=== PATIENT | female | born 1995 | race Caucasian/White ===

== ENCOUNTER 2019-01-18 19:56 | Emergency (ER) | payer SELFPAY ==
[2019-01-18] MEDS ORDERED: Bicillin LA 1.2 MILLION UNITS/2 ML SYRINGE ONE (20:51)
[2019-01-18] MEDS ORDERED: Dexamethasone 10 MG/ML VIAL ONE (20:52)
== END 2019-01-18 21:19 | disposition home or self-care (01) ==
LOC: ERS 19:56
DX: J02.0 Streptococcal pharyngitis (principal); J45.909 Unspecified asthma, uncomplicated; F41.9 Anxiety disorder, unspecified; F32.9 Major depressive disorder, single episode, unspecified; F43.10 Post-traumatic stress disorder, unspecified; Z79.899 Other long term (current) drug therapy
CPT/HCPCS: 87430; 96372; 99283; J0561; J1100

== ENCOUNTER 2019-02-21 16:49 | Emergency (ER) | payer SELFPAY ==
[2019-02-21 17:30] LABS: Bacteria/HPF None Seen HPF (None Seen); Bilirubin Negative (Negative); Blood, Urine Trace (Negative); Clarity Clear (Clear); Glucose, Urine (Dipstick) Normal (Negative); Leukocyte Negative Leu/uL (Negative); Nitrite Negative (Negative); Protein, Urine (Dipstick) Negative (Neg-Trace); RBC/HPF 0-3 HPF (0-3); Squamous Epithelial 0-3 HPF (0-3); Urobilinogen Normal mg/dL (Less than 2); WBC/HPF 0-3 HPF (0-3)
[2019-02-21 17:31] LABS: #Basophils 0.1 thou/uL (0.0-0.2); #Eosinphils 0.3 thou/uL (0.0-0.7); #Lymphocytes 3.5 thou/uL (1.20-3.40); #Monocytes 0.8 thou/uL (0.11-0.59); #Neutrophils 9.1 thou/uL (1.40-6.50); %Basophils 0.7 % (0.0-1.0); %Eosinophils 2.2 % (0.0-10.0); %Lymphocytes 25.2 % (21.0-51.0); %Monocytes 6.1 % (0.0-10.0); %Neutrophils 65.8 % (42.0-75.0); Hemoglobin 13.9 g/dL (12.0-16.0); Mean Corpuscular HGB CONC 34.5 g/dL (32.0-36.0); Mean Corpuscular Hemoglobin 30.4 pg (27.0-31.0); Mean Corpuscular Volume 88.1 fL (78.0-98.0); Mean Platelet Volume 7.5 fL (7.4-10.4); Platelet Count 363 thou/uL (130-400); RBC Distribution Width 12.9 % (11.5-14.5); Red Blood Cell (RBC) Count 4.57 mill/uL (4.20-5.40); White Blood Cell (WBC) Count 13.8 thou/uL (4.8-10.8)
[2019-02-21 17:40] LABS: BHCG - Serum POSITIVE (NEGATIVE); Pregs Control Background? CLEAR/WHITE (CLR/WHITE); Pregs Control Bar Appear? YES (CONTROL BAR)
[2019-02-21] MEDS ORDERED: Ondansetron ODT 4 MG TAB ONE (19:18)
--- NOTE | 2019-02-21 20:17 | ULT ---
Pelvic sonogram transabdominal and transvaginal imaging with duplex evaluation HISTORY: Pelvic pain and bleeding. Positive test. FINDINGS: Urinary bladder is incompletely distended. Uterus has a heterogeneous echotexture and measu res up to 8.5 cm. Within the fundal portion of the endometrial cavity, a lobular predominantly oval cyst correlates with 5 weeks 5 days gestational age. No pole or yolk sac visible. Small heterog eneous fluid collection immediately distal to it may represent an area of subchorionic hemorrhage. No free fluid within the pelvis. Right ovary has normal appearance with good color and spectral Doppl er flow. Left ovary not visualized. IMPRESSION: Small cystic structure, possibly gestational sac, within the fundal in endometrial cavity . Measurements correlate with 5 weeks 5 days gestational age. No yolk sac or pole are visible. Close continued clinical and sonographic follow-up recommended. Small adjacent subchorionic hemorrhage.
== END 2019-02-21 20:53 | disposition home or self-care (01) ==
LOC: ERS 16:49
DX: O20.0 Threatened abortion (principal); O20.8 Other hemorrhage in early pregnancy; Z79.899 Other long term (current) drug therapy; Z3A.01 Less than 8 weeks gestation of pregnancy
CPT/HCPCS: 36415; 76856; 81003; 81015; 84702; 84703; 85025; 86900; 86901; 90384; 96372; Q0162

== ENCOUNTER 2019-02-25 07:29 | Emergency (ER) | payer SELFPAY ==
[2019-02-25 08:00] LABS: #Basophils 0.1 thou/uL (0.0-0.2); #Eosinphils 0.2 thou/uL (0.0-0.7); #Lymphocytes 2.2 thou/uL (1.20-3.40); #Monocytes 0.6 thou/uL (0.11-0.59); #Neutrophils 6.4 thou/uL (1.40-6.50); %Basophils 1.1 % (0.0-1.0); %Eosinophils 1.7 % (0.0-10.0); %Lymphocytes 23.6 % (21.0-51.0); %Monocytes 6.3 % (0.0-10.0); %Neutrophils 67.4 % (42.0-75.0); Hemoglobin 13.4 g/dL (12.0-16.0); Mean Corpuscular HGB CONC 34.5 g/dL (32.0-36.0); Mean Corpuscular Hemoglobin 30.9 pg (27.0-31.0); Mean Corpuscular Volume 89.3 fL (78.0-98.0); Mean Platelet Volume 7.6 fL (7.4-10.4); Platelet Count 352 thou/uL (130-400); RBC Distribution Width 12.7 % (11.5-14.5); Red Blood Cell (RBC) Count 4.34 mill/uL (4.20-5.40); White Blood Cell (WBC) Count 9.5 thou/uL (4.8-10.8)
--- NOTE | 2019-02-25 09:54 | ULT ---
Pelvic ultrasound: 02/25/2019 COMPARISON: 02/21/2019 HISTORY: Pelvic pain, female TECHNIQUE: Multiplanar grayscale sonographic imaging of the pelvis obtained with transabdominal and e ndovaginal imaging The ovaries are assessed with color flow and spectral analysis FINDINGS: The left ovary could not be visualized on transabdominal or endovaginal imaging. There is an intrauterine gestational sac which contains a pole and yolk sac. heart rate i s 95-98 bpm, suggesting a mild degree of bradycardia. There is a tiny subchorionic hemorrhage measuring approximately 6-7 mm. No significant free fluid is seen in the pelvis. Right ovary demonstrates normal blood flow and measures approximately 2.1 x 2.0 x 1.3 cm and contains a subcentimeter cyst. biometry: [place]-rump length 0.4 cm 6 weeks 0 days Gestational sac diameter 1.3 cm 6 weeks 1 days Average age based on ultrasound is 6 week 1 day with estimated date of delivery on 10/20/2019. IMPRESSION: Intrauterine gestation as detailed above. Mild bradycardia. Small subchorionic hemo rrhage.
== END 2019-02-25 10:45 | disposition home or self-care (01) ==
LOC: ERS 07:29
DX: O99.89 Other specified diseases and conditions complicating pregnancy, childbirth and the puerperium (principal); R10.2 Pelvic and perineal pain; O99.511 Diseases of the respiratory system complicating pregnancy, first trimester; J45.909 Unspecified asthma, uncomplicated; O99.341 Other mental disorders complicating pregnancy, first trimester; F41.9 Anxiety disorder, unspecified; F32.9 Major depressive disorder, single episode, unspecified; F43.10 Post-traumatic stress disorder, unspecified; Z3A.01 Less than 8 weeks gestation of pregnancy
CPT/HCPCS: 36415; 76856; 84702; 85025

== ENCOUNTER 2019-04-11 16:51 | Inpatient (IN) | payer OTHER ==
[2019-04-11] MEDS ORDERED: Promethazine HCl 25 MG/ML VIAL IM PRN (17:22)
[2019-04-11 17:38] VITALS: BMI 34.5
[2019-04-11] MEDS: Lactated Ringer's 1,000 ML IV SCH (18:32)
[2019-04-11 18:39] LABS: Bilirubin Negative (Negative); Blood, Urine Negative (Negative); Clarity Clear (Clear); Glucose, Urine (Dipstick) Normal (Negative); Leukocyte 25 Leu/uL (Negative); Nitrite Negative (Negative); Protein, Urine (Dipstick) 20 mg/dL (Neg-Trace); RBC/HPF 0-3 HPF (0-3); Urobilinogen Normal mg/dL (Less than 2); WBC/HPF 0-3 HPF (0-3)
[2019-04-11 18:40] LABS: Bacteria/HPF 1+ HPF (None Seen)
[2019-04-11 19:12] LABS: Anion Gap 15 mmol/L (10-20); BUN (Urea Nitrogen) 5 mg/dL (7.0-18.7); Calc. Creatinine Clearance 182 mL/min (70-130); Calcium 9.5 mg/dL (7.8-10.44); Carbon Dioxide 20 mmol/L (22-29); Chloride 105 mmol/L (98-107); Estimated GFR-MDRD Greater than 90; Glucose 67 mg/dL (70-105); Sodium 136 mmol/L (136-145)
[2019-04-11] MEDS ORDERED: Albuterol Sulfate 1.25 MG/3 ML NEB NEB PRN (20:01)
--- NOTE | 2019-04-11 20:02 | PDOC.FPRHP ---
- History of Present Illness Chief Complaint: N/V, Weight Loss History of Present Illness: Pt is a 24 yo female at 12.3 wks dated by LMP, c/w 1T sono with PMH of asthma, hx of SAB x 4 who presents who for constant nausea, emesis and 10# weight during her . She has had symptoms for the last 2-3 weeks which progressively have gotten worse. She is unable to tolerate an PO intake without episodes of emesis. Unable to tolerate her PNV. She was given zofran for nausea which has not alleviated her symptoms. She had a BM yesterday. She did endorse KIM but has hx of migraines. Denies abdominal tenderness. Denies vaginal bleeding, discharge. Regarding her SAB x 4 she has had work up in the outpt setting has been unremarkable to this point. She did not progress past 9 weeks in the previous pregnancies. She will see M in the following month. ED Course: Direct admission from [facility] - Allergies/Adverse Reactions Allergies Allergy/AdvReac Type Severity Reaction Status Date / Time artificial sweeteners Allergy Headache Uncoded 04/11/19 17:23 - Home Medications Medication Instructions Recorded Confirmed Type Albuterol Sulfate [Albuterol 1.25 mg NEB Q6HR PRN 04/11/19 04/11/19 History Sulfate Neb] Ondansetron [Zofran ODT] 4 mg PO Q4HR PRN 04/11/19 04/11/19 History Pnv No.95/Ferrous Fum/Folic AC 1 tablet PO DAILY 04/11/19 04/11/19 History [Prenavite Tablet] - History PMHx: SAB x 4, Migraines, Asthma PSHx: appendectomy, D&C x 4 FHx: Mother - Pre-E, SAB; Aunts - labor Social: Denies drug use, alcohol use, tobacco use, currently not working - Review of Systems General: reports: weight/appetite/sleep changes. denies: fever/chills ENT: denies: nasal congestion Respiratory: denies: cough, congestion, shortness of breath Cardiovascular: denies: chest pain, palpitation, edema Gastrointestinal: reports: nausea, vomiting. denies: diarrhea, constipation Genitourinary: denies: dysuria, polyuria, discharge - Vital signs BP: 116/71 HR: 86 RR: 16 Tmax: 97.7 Pox: 99% on RA Wt: 80.3 kg - Physical Exam Constitutional: NAD, awake, alert and oriented HEENT: PERRLA, EOMI Neck: FROM, trachea midline Heart: RRR, normal S1/S2, no edema Lungs: CTAB, no respiratory distress, no wheezing Abdomen: soft, non-tender, bowel sounds present Musculoskeletal: normal tone, ROM grossly normal Neurological: CN II-XII intact Skin: no rash/lesions Heme/Lymphatic: no purpura, no petechia FMR H&P: Results - Labs Result Diagrams: 04/11/19 18:25 Lab results: Sodium 136 mmol/L (136-145) 04/11/19 18:25 Potassium 4.0 mmol/L (3.5-5.1) 04/11/19 18:25 Chloride 105 mmol/L (98-107) 04/11/19 18:25 Carbon Dioxide 20 mmol/L (22-29) L 04/11/19 18:25 BUN 5 mg/dL (7.0-18.7) L 04/11/19 18:25 Creatinine 0.61 mg/dL (0.6-1.1) 04/11/19 18:25 Glucose 67 mg/dL (70-105) L 04/11/19 18:25 Calcium 9.5 mg/dL (7.8-10.44) 04/11/19 18:25 Urine Ketones 80 mg/dL (Negative) A 04/11/19 18:30 Urine Blood Negative (Negative) 04/11/19 18:30 Urine Nitrite Negative (Negative) 04/11/19 18:30 Ur Leukocyte Esterase 25 Jennifer/uL (Negative) 04/11/19 18:30 Urine RBC 0-3 HPF (0-3) 04/11/19 18:30 Urine WBC 0-3 HPF (0-3) 04/11/19 18:30 Ur Squamous Epith Cells 4-6 HPF (0-3) A 04/11/19 18:30 Urine Bacteria 1+ HPF (None Seen) A 04/11/19 18:30 FMR H&P: A/P - Problem List (1) Hyperemesis gravidarum Current Visit: Yes Status: Acute Code(s): O21.0 - MILD HYPEREMESIS GRAVIDARUM (2) Hx of spontaneous , currently Current Visit: Yes Status: Acute Code(s): O09.299 - SUPRVSN OF PREG W POOR REPRODCTV OR OBSTET HISTORY, UNSP TRI (3) Weight loss Current Visit: Yes Status: Acute - Plan Pt is a 24 yo female at 12.3 wks dated by LMP, c/w 1T sono with PMH of asthma, hx of SAB x 4 who presents who for constant nausea, emesis and 10# weight during her : # Hyperemesis Gravidarum # Weight Loss - anti-emetics for nausea control - advance diet as tolerated; currently clear liquids - prior u/s revealed pole - TSH pending, CBC pending - monitor electrolytes # SAB - worked up in the outpt setting - pt denies vaginal bleeding - sees MFM in a month Fluids: LR 120 Diet: Clears VTE: scd's Code: Full Dispo: < 2 midnight stay FMR H&P: Upper Level - Plan Date/Time: 04/11/191999 I, [], have evaluated this patient and agree with findings/plan as outlined by technical internship resident. Pertinent changes/additions are listed here.
[2019-04-11 20:32] LABS: #Basophils 0.1 thou/uL (0.0-0.2); #Eosinphils 0.1 thou/uL (0.0-0.7); #Lymphocytes 2.9 thou/uL (1.20-3.40); #Monocytes 0.6 thou/uL (0.11-0.59); #Neutrophils 7.7 thou/uL (1.40-6.50); %Basophils 0.6 % (0.0-1.0); %Eosinophils 1.2 % (0.0-10.0); %Lymphocytes 25.2 % (21.0-51.0); %Monocytes 5.1 % (0.0-10.0); %Neutrophils 67.9 % (42.0-75.0); Mean Corpuscular HGB CONC 33.8 g/dL (32.0-36.0); Mean Corpuscular Volume 91.9 fL (78.0-98.0); Mean Platelet Volume 9.6 fL (7.4-10.4); Platelet Count 306 thou/uL (130-400); RBC Distribution Width 12.9 % (11.5-14.5); Red Blood Cell (RBC) Count 4.53 mill/uL (4.20-5.40); White Blood Cell (WBC) Count 11.4 thou/uL (4.8-10.8)
[2019-04-11] MEDS ORDERED: diphenhydrAMINE 12.5 MG in Sodium Chloride 0.9% 50 ML IVPB SCH (21:00)
--- NOTE | 2019-04-11 21:18 | PDOC.BPN ---
- Brief Progress Note Date/Time: 04/11/191999 I, Murphy Rivas MD, have evaluated this patient and agree with findings/plan as outlined by credit intern resident in the History and Physical note. Pertinent changes/additions are listed here. Crystal Monday is a 24 year old F at 12.4 wks by LMP c/w 6.1 wk sono with a PMH of asthma and recurrent miscarriages. She was sent to [facility] as direct admit from Clinic for hyperemesis gravidarum. Patient has had progressively worsening nausea and vomiting since 6th week of . Over the last 1-2 weeks, she has not been able to keep done much PO intake and also notes a 10 lb weight loss since becoming . She was given zofran but it has not significantly improved her n/v. She denies significant abdominal pain aside from crampy sensation prior to vomiting. Denies fever. Has hx of appendectomy. Denies RUQ pain. She had a 6.1 US showing normal IUP. Also endorses HAs, has hx of migraines. Denies vaginal bleeding, LOF, contractions, dysuria. Pt has had work up of recurrent miscarriages at [facility]. Unable to view records at this time, but was informed by PCP that she was negative for antiphospholipid syndrome. Plan is for pt to follow up with MFM during this . Upon arrival, VSS and wnl, afebrile. Normal BMP. Exam was benign, no RUQ TTP, mild epigastric TTP, no rebound, guarding or rigidity. MMM, lungs CTAB, heart RRR no murmurs. 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 Starting antiemetic regimen and will start mIVFs. Will advance diet as tolerated, starting with clear liquids. Monitor I/Os and daily weights. Anticipate hospital stay >48 hours. Please see credit intern note for full H& P, which I have reviewed and agree with.
[2019-04-12] MEDS: Lactated Ringer's 1,000 ML IV SCH ×4 (02:40→19:10)
[2019-04-12] MEDS: Ondansetron ODT 4 MG TAB PO PRN (05:48)
[2019-04-12] MEDS: Prenatal Vitamin 1 TAB PO SCH (08:28)
[2019-04-12] MEDS: Doxylamine 25 MG TAB PO SCH ×2 (08:28→22:13)
[2019-04-12] MEDS ORDERED: Promethazine HCl 12.5 MG SUPP PR PRN (09:14)
--- NOTE | 2019-04-12 09:15 | PDOC.FM ---
- Subjective Subjective: No vomiting overnight however she did not try anything PO except water. She felt nauseous each time she drank water. Denies abdominal pain. Would like Phenergan PO rather than IM. Otherwise no complaints. - Objective MAR Reviewed: Yes Vital Signs & Weight: Vital Signs (12 hours) Temp Pulse Resp BP Pulse Ox 04/12/19 07:50 98.7 F 83 20 85/49 L 97 04/12/19 05:42 98.8 F 88 16 94/51 L 04/12/19 00:30 98.3 F 82 16 98/53 L Weight Weight 80.286 kg I&O: 04/11/19 04/12/19 04/13/19 06:59 06:59 06:59 Intake Total 1846 Output Total 1450 Balance 396 Result Diagrams: 04/11/19 18:28 04/11/19 18:25 Phys Exam - Physical Examination Constitutional: NAD HEENT: moist MMs Neck: supple Respiratory: no wheezing, clear to auscultation bilateral Cardiovascular: RRR, no significant murmur Gastrointestinal: soft, non-tender, positive bowel sounds Musculoskeletal: no edema, pulses present Neurological: moves all 4 limbs Psychiatric: normal affect, A&O x 3 Skin: no rash Dx/Plan - Plan Plan: 24yo female at 12.3wks by LMP c/w 1T sono admitted for hyperemesis gravidarum Hyperemesis Gravidarum - 10lb wt loss this , will monitor with daily wts - Continue Scheduled Unisom and Vit B6, scheduled phenergan [place] with PRNs available. Also Zofran PRN, encourage prior to trying clear liquid meals - LR @120 Hx of SAB - Worked up in the outpt setting, labs neg. 1T bleeding that resolved. - Has scheduled f/u with [facility] Obesity - BMI 34 Hx of MDD and PTSD - Not currently on medication, controlled with Zoloft in the past Mild Intermittent Asthma - Albuterol PRN Rh negative, Antibody positive, Anti-D - Received Rhogam with 1T bleeding this Estela Jay MD PGY-2 Addendum - Attending - Attending Attestation Date/Time: 04/12/19 1208 I personally evaluated the patient and discussed the management with the team. I agree with the History, Examination, Assessment and Plan documented above with any addition or exceptions noted below.
[2019-04-12] MEDS: Promethazine HCl 12.5 MG SUPP PR SCH ×2 (14:04→22:15)
[2019-04-12] MEDS ORDERED: diphenhydrAMINE 50 MG/ML VIAL IVP SCH (21:00)
--- NOTE | 2019-04-13 04:27 | PDOC.FM ---
- Subjective Subjective: Tolerating full liquid diet. Would like to try regular diet this morning. No vomiting in last 24 hours. Nausea is controlled. - Objective MAR Reviewed: Yes Vital Signs & Weight: Vital Signs (12 hours) Temp Pulse Resp BP Pulse Ox 04/12/19 19:54 98.6 F 82 18 98/53 L 97 04/12/19 16:30 99.1 F 84 20 97/50 L 99 Weight Admit Weight 80.286 kg Weight 80.286 kg I&O: 04/11/19 04/12/19 04/13/19 06:59 06:59 06:59 Intake Total 1846 2100 Output Total 1450 3200 Balance 396 -1100 Result Diagrams: 04/11/19 18:28 04/11/19 18:25 Phys Exam - Physical Examination Constitutional: NAD HEENT: moist MMs Appears well hydrated Neck: supple No respiratory distress Musculoskeletal: no edema Neurological: moves all 4 limbs Psychiatric: normal affect, A&O x 3 Skin: no rash, normal turgor Dx/Plan - Plan Plan: 24yo female at 12.3wks by LMP c/w 1T sono admitted for hyperemesis gravidarum Hyperemesis Gravidarum - 10lb wt loss this , will monitor with daily wts - Continue Scheduled Unisom and Vit B6, scheduled phenergan [place] with PRNs available. Zofran PRN - Tolerating Full liquid diet, will continue to advance. - Will stop IV fluids Hx of SAB - Worked up in the outpt setting, labs neg. 1T bleeding that resolved. - Has scheduled f/u with [facility] Obesity - BMI 34 Hx of MDD and PTSD - Not currently on medication, controlled with Zoloft in the past Mild Intermittent Asthma - Albuterol PRN Rh negative, Antibody positive, Anti-D - Received Rhogam with 1T bleeding this Dispo: Likely later this afternoon if tolerating regular diet Estela Jay MD PGY-2 Addendum - Attending - Attending Attestation Date/Time: 04/13/19 0838 I personally evaluated the patient and discussed the management with Dr. Jay. I agree with the History, Examination, Assessment and Plan documented above with any addition or exceptions noted below. Advance diet, adjust meds PRN, hopeful d/c this PM.
[2019-04-13] MEDS: Promethazine HCl 12.5 MG SUPP PR SCH ×3 (05:42→22:12)
[2019-04-13] MEDS: Lactated Ringer's 1,000 ML IV SCH ×3 (05:42→22:11)
[2019-04-13] MEDS: pyridOXINE 50 MG (B6) TAB PO SCH ×3 (08:28→22:12)
[2019-04-13] MEDS: Doxylamine 25 MG TAB PO SCH ×2 (08:28→22:13)
[2019-04-13] MEDS: Prenatal Vitamin 1 TAB PO SCH (08:29)
[2019-04-13] MEDS: Ondansetron ODT 4 MG TAB PO PRN (11:55)
--- NOTE | 2019-04-14 03:50 | PDOC.FM ---
- Subjective Subjective: Patient doing well this AM. She states that when the IV got turned off yesterday , she started to feel gradually more weak. She states that she tolerated all three meals yesterday on a regular diet. She states they were small meals, but she did not experience any significant N/V. Patient agreeable to discharge today pending how she does with breakfast. - Objective MAR Reviewed: Yes Vital Signs & Weight: Vital Signs (12 hours) Temp Pulse Resp BP Pulse Ox 04/14/19 00:00 98.3 F 75 16 97/51 L 97 04/13/19 20:04 98.3 F 80 16 106/58 L 97 Weight Admit Weight 80.286 kg Weight 80.286 kg I&O: 04/12/19 04/13/19 04/14/19 06:59 06:59 06:59 Intake Total 1846 2661 3775 Output Total 1450 4100 3500 Balance 396 -1438 275 Result Diagrams: 04/11/19 18:28 04/11/19 18:25 Phys Exam - Physical Examination Constitutional: NAD HEENT: moist MMs Respiratory: clear to auscultation bilateral Cardiovascular: RRR, no significant murmur Gastrointestinal: soft, non-tender Musculoskeletal: no edema, pulses present Neurological: non-focal Psychiatric: normal affect, A&O x 3 Skin: no rash, cap refill <2 seconds Dx/Plan (1) Hyperemesis gravidarum Code(s): O21.0 - MILD HYPEREMESIS GRAVIDARUM Status: Acute (2) Weight loss Status: Acute (3) Hx of spontaneous , currently Code(s): O09.299 - SUPRVSN OF PREG W POOR REPRODCTV OR OBSTET HISTORY, UNSP TRI Status: Acute - Plan Plan: 24yo female at 12.6 wks by LMP c/w 1T sono admitted for hyperemesis gravidarum Hyperemesis Gravidarum - 10 lb wt loss this , monitoring with daily wts (weight documented same 2 days in a row, uncertain if true weight) - Continue Scheduled Unisom and Vit B6, scheduled phenergan [place] with PRNs available. Zofran PRN - Tolerating regular diet. Tolerated all three meals yesterday. - IVF restarted yesterday afternoon, will stop early this AM and see if patient tolerates breakfast. Hx of recurrent SAB x4 - Worked up in the outpt setting, labs neg. 1T bleeding that resolved. - Has scheduled f/u with MFM in one month per previous notes Obesity - BMI 34 Hx of MDD and PTSD - Not currently on medication, controlled with Zoloft in the past - Patient desires to start back on Zoloft, will send home with Rx Mild Intermittent Asthma - Albuterol PRN, will send home with inhaler Rh negative, Antibody positive, Anti-D - Received Rhogam with 1T bleeding this Dispo: Likely d/c this AM if tolerating breakfast. Patient has follow up scheduled for 04/19. Addendum - Attending - Attending Attestation Date/Time: 04/14/19 0154 I personally evaluated the patient and discussed the management with Dr. Jay. I agree with the History, Examination, Assessment and Plan documented above with any addition or exceptions noted below. Overall feeling better. Wants to attempt regular diet and possible discharge this afternoon.
[2019-04-14] MEDS: Promethazine HCl 12.5 MG SUPP PR SCH ×2 (05:31→15:05)
[2019-04-14] MEDS: Prenatal Vitamin 1 TAB PO SCH (09:00)
[2019-04-14 11:55] VITALS: BP 98/53; TEMP 99.2
[2019-04-14] MEDS: pyridOXINE 50 MG (B6) TAB PO SCH (12:14)
[2019-04-14] MEDS: Doxylamine 25 MG TAB PO SCH (12:15)
[2019-04-14] MEDS: Ondansetron ODT 4 MG TAB PO PRN (13:24)
--- NOTE | 2019-04-16 10:10 | DIS ---
DATE OF ADMISSION: 04/11/2019 DATE OF DISCHARGE: 04/14/2019 RESIDENT: Estela Jay MD, PGY-2. DISCHARGE ATTENDING: Lester Chao MD CONSULTS: None. PROCEDURES: None. PRIMARY DIAGNOSIS: Hyperemesis gravidarum. SECONDARY DIAGNOSES: 1. Single intrauterine . 2. History of recurrent spontaneous x4. 3. Obesity. 4. History of major depressive disorder and posttraumatic stress disorder. 5. Mild intermittent asthma. 6. Rh negative, antibody positive, Anti-D. DISCHARGE MEDICATIONS: 1. Unisom 12.5 mg b.i.d. 2. Zofran 4 mg q.6 hours p.r.n. 3. vitamins. 4. Promethazine 12.5 mg per rectum q.8 hours. 5. Vitamin B6 of 10 mg t.i.d. 6. Sertraline 50 mg daily. DISCONTINUED MEDICATIONS: None. HISTORY OF PRESENT ILLNESS/HOSPITAL COURSE: Monday is a 24-year-old, G5, P-0-0-4-0 presented at 12.3 weeks by last menstrual period consistent with a first-trimester ultrasound, presented with nausea and vomiting, and a 10-pound weight loss. She had been given Zofran for nausea, but had not alleviated symptoms. She was started on a regimen of scheduled Phenergan and Diclegis with p.r.n. Zofran available and encouraged 20 minutes before meals. She was started on clear liquid diet and advanced to full liquid diet prior to discharge. TSH and CBC were obtained and within normal limits. In regard to her history of recurrent SAB x4 days, she was worked up in the outpatient setting and labs were negative. She had first trimester bleeding resolved. She is scheduled to have followup with [facility] within the next month. Other problems include obesity, history of major depressive disorder, PTSD, mild intermittent asthma. She will be continued with home medications. In regard to her Rh negative status, she is antibody positive, Anti-D, she received RhoGAM when she had first trimester bleeding. DISPOSITION: Stable. DISCHARGE INSTRUCTIONS: 1. Location: Home. 2. Diet: Regular as tolerated. Avoid foods that precipitate nausea. 3. Activity: restriction. 4. Follow up with clinic on 04/[address] Pryor. Job ID: [id number] [facility]Jose
== END 2019-04-14 16:30 | disposition home or self-care (01) | DRG 833 ==
LOC: 3SE 16:51 → EEVIPCON 16:51
PROVIDERS: ADMIT Emergency Medicine; ATTEND Emergency Medicine
DX: O21.0 Mild hyperemesis gravidarum (principal); R63.4 Abnormal weight loss; Z3A.12 12 weeks gestation of pregnancy; O26.891 Other specified pregnancy related conditions, first trimester; O99.211 Obesity complicating pregnancy, first trimester; O99.341 Other mental disorders complicating pregnancy, first trimester; F32.9 Major depressive disorder, single episode, unspecified; O99.511 Diseases of the respiratory system complicating pregnancy, first trimester; J45.909 Unspecified asthma, uncomplicated
CPT/HCPCS: 80048; 81001; 83735; 84443; 85025; J1200; J2550; J3415; Q0162

== ENCOUNTER 2019-07-11 13:23 | Emergency (ER) | payer OTHER ==
[2019-07-11] MEDS ORDERED: Iopamidol 370 76% 100 ML VIAL ONE (13:25)
[2019-07-11 14:55] LABS: #Eosinphils 0.1 thou/uL (0.0-0.7); #Lymphocytes 2.7 thou/uL (1.20-3.40); #Monocytes 0.7 thou/uL (0.11-0.59); #Neutrophils 10.8 thou/uL (1.40-6.50); %Basophils 0.2 % (0.0-1.0); %Eosinophils 0.5 % (0.0-10.0); %Lymphocytes 18.9 % (21.0-51.0); %Monocytes 4.7 % (0.0-10.0); %Neutrophils 75.7 % (42.0-75.0); Hemoglobin 12.7 g/dL (12.0-16.0); Mean Corpuscular HGB CONC 35.1 g/dL (32.0-36.0); Mean Platelet Volume 7.8 fL (7.4-10.4); Platelet Count 307 thou/uL (130-400); RBC Distribution Width 11.9 % (11.5-14.5); Red Blood Cell (RBC) Count 3.85 mill/uL (4.20-5.40); White Blood Cell (WBC) Count 14.3 thou/uL (4.8-10.8)
[2019-07-11 15:11] LABS: ALT (SGPT) 8 U/L (8-55); AST (SGOT) 11 U/L (5-34); Albumin 3.6 g/dL (3.5-5.0); Alkaline Phosphatase 84 U/L (40-110); Anion Gap 17 mmol/L (10-20); BUN (Urea Nitrogen) 4 mg/dL (7.0-18.7); Bilirubin, Total 0.3 mg/dL (0.2-1.2); Calc. Creatinine Clearance 0 mL/min (70-130); Calcium 8.7 mg/dL (7.8-10.44); Carbon Dioxide 18 mmol/L (22-29); Chloride 106 mmol/L (98-107); Estimated GFR-MDRD Greater than 90; Globulin 3.6 g/dL (2.4-3.5); Glucose 78 mg/dL (70-105); Potassium 3.5 mmol/L (3.5-5.1); Protein, Total 7.2 g/dL (6.0-8.3); Sodium 137 mmol/L (136-145)
--- NOTE | 2019-07-11 15:19 | RAD ---
CHEST 1 VIEW: Date: 07/11/2019 INDICATION: Shortness of breath. History of . FINDINGS: No consolidation, pleural effusion, or pneumothorax evident. Heart size is normal. No acute osseous a bnormality is evident. IMPRESSION: No acute cardiopulmonary abnormality. POS: BH
[2019-07-11] MEDS ORDERED: Acetaminophen 500 MG TAB ONE (16:57)
--- NOTE | 2019-07-11 17:04 | CT ---
CTA OF THE CHEST WITH CONTRAST: 07/11/19 COMPARISON: 24-year-old with shortness of breath. The patient is 25 weeks . TECHNIQUE: Multiple contiguous axial images were obtained in a CT of the chest with contrast per pulmonary embol ism protocol. 3D oblique MIP reformats and direct coronal reformats were performed. FINDINGS: The pulmonary arteries are well opacified without filling defects to suggest pulmonary emboli. The he art is normal in size without focal chronic abnormality. No hilar or mediastinal lymphadenopathy are seen. No focal infiltrates or masses are seen in the lungs. No pneumothorax or pleural effusion are seen. The visualized subdiaphragmatic structures are unremarkable. The chest wall soft tissues and osseous structures are unremarkable. IMPRESSION: No evidence of pulmonary thromboembolism. POS: EAA
[2019-07-11 17:54] LABS: Troponin I Less than 0.010 ng/mL (< 0.028)
== END 2019-07-11 18:28 | disposition home or self-care (01) ==
LOC: ERS 13:23
DX: O99.89 Other specified diseases and conditions complicating pregnancy, childbirth and the puerperium (principal); R06.00 Dyspnea, unspecified; O99.512 Diseases of the respiratory system complicating pregnancy, second trimester; J45.909 Unspecified asthma, uncomplicated; O99.342 Other mental disorders complicating pregnancy, second trimester; F41.9 Anxiety disorder, unspecified; F32.9 Major depressive disorder, single episode, unspecified; F43.10 Post-traumatic stress disorder, unspecified; Z79.899 Other long term (current) drug therapy; Z3A.25 25 weeks gestation of pregnancy
CPT/HCPCS: 36415; 71045; 71275; 80053; 84484; 85025; 85379; 93005; Q9967

== ENCOUNTER 2019-08-04 11:05 | Emergency (ER) | payer OTHER ==
--- NOTE | 2019-08-04 14:14 | CT ---
CT OF THE SOFT TISSUES OF THE NECK WITH IV CONTRAST INDICATION: Left-sided facial pain, neck pain and ear pain COMPARISON: None FINDINGS: Aerodigestive tract: Clear. Parotids/Submandibular/Thyroid glands: Normal. Lymph nodes: No pathologically enlarged lymph nodes. Lung Apices: Clear. Bones: No acute osseous abnormality. Incidentals: Visualized paranasal sinuses and mastoid air cells are clear. No appreciable dental or periodontal disease is evident. IMPRESSION: Normal examination.
[2019-08-04] MEDS ORDERED: Acetaminophen 500 MG TAB ONE (14:51)
== END 2019-08-04 15:05 | disposition home or self-care (01) ==
LOC: ERS 11:05
DX: O99.89 Other specified diseases and conditions complicating pregnancy, childbirth and the puerperium (principal); H66.92 Otitis media, unspecified, left ear; O99.342 Other mental disorders complicating pregnancy, second trimester; F41.9 Anxiety disorder, unspecified; F43.10 Post-traumatic stress disorder, unspecified; F32.9 Major depressive disorder, single episode, unspecified; O99.512 Diseases of the respiratory system complicating pregnancy, second trimester; J45.909 Unspecified asthma, uncomplicated; Z79.899 Other long term (current) drug therapy
CPT/HCPCS: 70490

== ENCOUNTER 2019-09-29 12:04 | Day surgery (SDC) | payer OTHER ==
[2019-09-29 12:52] VITALS: BMI 38.2
[2019-09-29 12:59] VITALS: BP 111/70; TEMP 98.6
[2019-09-29] MEDS ORDERED: hydrALAZINE 20 MG/ML VIAL SLOW IVP PRN (13:25)
--- NOTE | 2019-09-29 13:26 | PDOC.FPROB ---
FMR OB H&P: HPI - History of Present Illness Chief Complaint: Decreased movement Indentification: 25 year old at 36.6 wks History of Present Illness: 25 year old at 36.6 wks presents with decreased movement since last night. Patient states that this morning, she tried to drink juice, move around, etc, but was still not feeling movement, so she decided to come in for evaluation. She denies contractions, vaginal bleeding, vaginal discharge, LoF. 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 Primary Care Physician: Konstantin - [facility] FMR OB H&P: Current - Care : 5 Para: 0040 Gestational age: 36.6 wks FMR OB H&P: History - Past Medical History PMH: Anxiety/Depression Hypothyroidism Asthma - OB History OB History: Subchorionic hemorrhage in early Hx SAB x4 - EX ASSISTANT/PROGRAM DIRECTOR History EX ASSISTANT/PROGRAM DIRECTOR History: HSV on ppx - Surgical History Sx History: Denies - Social History Social History: Denies alcohol, tobacco, or drug use FMR OB H&P: Medications - Current Home Medications: Medication Instructions Recorded Confirmed Type Pnv No.95/Ferrous Fum/Folic AC 1 tablet PO DAILY 04/11/19 04/11/19 History [ Vitamins Tablet] pyridOXINE [Vitamin B 6] 10 mg PO TID #90 tab 04/13/19 Rx Albuterol Sulfate HFA (OR) 2 puff INH Q6H PRN #1 inh 04/14/19 Rx [Proventil Hfa (or)] Sertraline HCl [Zoloft] 50 mg PO DAILY #30 tablet 04/14/19 Rx Famciclovir 125 mg PO BID 09/29/19 09/29/19 History Levothyroxine Sodium 50 mcg PO 09/29/19 History Allergies/Adverse Reactions: Allergies Allergy/AdvReac Type Severity Reaction Status Date / Time artificial sweeteners Allergy Headache Uncoded 09/29/19 12:48 FMR OB H&P: ROS - Review of Systems General: denies: fever/chills, weight/appetite/sleep changes Eyes: denies: vision changes ENT: denies: nasal congestion, rhinorrhea Cardiovascular: denies: chest pain, palpitation, edema Respiratory: denies: cough, congestion, shortness of breath Gastrointestinal: denies: abdominal pain, nausea, vomiting Genitourinary (Female): denies: dysuria, vaginal discharge, vaginal pain, vaginal bleeding Musculoskeletal: denies: pain, stiffness, decrease range of motion Neurologic: denies: numbness, syncope, weakness Integumentary: denies: itching, rash, lesions Psychological: reports: depression, anxiety FMR OB H&P: Vital Signs - Maternal Vital signs: Vital Signs - First Documented Temp Pulse Resp BP Pulse Ox 98.6 F 100 20 111/70 98 09/29/19 12:25 09/29/19 12:25 09/29/19 12:25 09/29/19 12:25 09/29/19 12:25 - Heart Tones Baseline: 145 Variability: moderate Deceleration: absent [place] contractions every: reactive FMR OB H&P: Physical Exam - Physical Exam General: NAD, awake, alert and oriented HEENT: EOMI, MMM, no scleral icterus Heart: RRR, no murmurs/rubs/gallops, pulses present General: CTAB, no respiratory distress Abdomen: soft, gravid, non-tender Musculoskeletal: pulses present, FROM in all four extremities Neurological: no clonus, no tremor Skin: no rash, good tugor, capillary refill <2 seconds Lymphatic: no unusual bruising or bleeding, no purpura Psychiatric: intact recent and remote memory, good judgement and insight, normal mood and affect FMR OB H&P: A/P - Problem List (1) Decreased movement Status: Acute Code(s): O36.8190 - DECREASED MOVEMENTS, UNSP TRIMESTER, UNSP (2) Status: Acute (3) Hx of spontaneous , currently Status: Acute Code(s): O09.299 - SUPRVSN OF PREG W POOR REPRODCTV OR OBSTET HISTORY, UNSP TRI Disposition: 24 year old at 36.6 wks presents with decreased movement Decreased movement - NST reactive, moderate variability, no decels - Patient now feels movement IUP - at 36.6 wks - denies vaginal bleeding, vaginal discharge, contractions, LoF - continue routine PNC Dispo: Discharge home with return precautions. Discussion: Date/Time: 09/29/19 1326 This H&P was discussed with Dr. Powers who agrees with the above documentation and plan. Signature: Ronel Pryor, DO PGY-3
--- NOTE | 2019-09-29 13:29 | PDOC.BPN ---
- Brief Progress Note Patient in Triage A Faculty Triage Note: Faculty Attestation PNC Patient seen first by Dr Pryor CC: Decreased FM at late HX SABs in past I have seen and reviewed care with the patient at bedside. NST recative. NO evidence PTL. OK for outpatient care. Please see full H&P
== END 2019-09-29 13:37 | disposition home or self-care (01) ==
LOC: L&D/OP 12:04
PROVIDERS: ATTEND Obstetrics & Gynecology
DX: O36.8130 Decreased fetal movements, third trimester, not applicable or unspecified (principal); O99.343 Other mental disorders complicating pregnancy, third trimester; F41.9 Anxiety disorder, unspecified; F32.9 Major depressive disorder, single episode, unspecified; O99.283 Endocrine, nutritional and metabolic diseases complicating pregnancy, third trimester; E03.9 Hypothyroidism, unspecified; O99.513 Diseases of the respiratory system complicating pregnancy, third trimester; J45.909 Unspecified asthma, uncomplicated; O09.293 Supervision of pregnancy with other poor reproductive or obstetric history, third trimester; Z3A.36 36 weeks gestation of pregnancy; Z79.899 Other long term (current) drug therapy; Z91.018 Allergy to other foods

== ENCOUNTER 2019-09-29 19:50 | Day surgery (SDC) | payer OTHER ==
[2019-09-29 20:15] VITALS: BP 129/79; TEMP 98.6; BMI 38.2
[2019-09-29] MEDS ORDERED: hydrALAZINE 20 MG/ML VIAL SLOW IVP PRN (20:50)
--- NOTE | 2019-09-29 20:51 | PDOC.FPROB ---
FMR OB H&P: HPI - History of Present Illness Chief Complaint: back pain Indentification: 24yo @ 36.6wks History of Present Illness: 24yo @ 36.6wks presents for back pain and contractions. Patient was seen this morning in L&D triage for decreased movement. At that time, NST was reactive and patient began to experience increased movement. Pt was discharged with labor precautions. Since discharge patient has experienced lower back pain/pressure, initially intermittent, but now constant. Unrelieved with tylenol. No associated n/v, fever/chills, CP, SOB, vision changes, or HAs. Endorses movement, intermittent contractions. No vaginal bleeding. Does endorse slight dysuria without hematuria or frequency as well as increase in vaginal discharge. 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 Tolerating PO well. Denies recent trauma or increased activity of late. 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 . FMR OB H&P: Medications - Current Home Medications: Medication Instructions Recorded Confirmed Type Pnv No.95/Ferrous Fum/Folic AC 1 tablet PO DAILY 04/11/19 09/29/19 History [ Vitamins Tablet] Albuterol Sulfate HFA (OR) 2 puff INH Q6H PRN #1 inh 04/14/19 09/29/19 Rx [Proventil Hfa (or)] Sertraline HCl [Zoloft] 50 mg PO DAILY #30 tablet 04/14/19 09/29/19 Rx Famciclovir 125 mg PO BID 09/29/19 09/29/19 History Levothyroxine Sodium 50 mcg PO DAILY 09/29/19 09/29/19 History Allergies/Adverse Reactions: Allergies Allergy/AdvReac Type Severity Reaction Status Date / Time artificial sweeteners Allergy Mild Headache Uncoded 09/29/19 20:16 FMR OB H&P: ROS - Review of Systems General: denies: fever/chills, weight/appetite/sleep changes, night sweats, fatigue, recent trauma Eyes: denies: vision changes, scotomas, floaters ENT: denies: nasal congestion, rhinorrhea, sore throat Cardiovascular: denies: chest pain, palpitation, edema Respiratory: denies: cough, congestion, shortness of breath Gastrointestinal: reports: abdominal pain. denies: indigestion, bloating, nausea, vomiting, diarrhea, constipation Genitourinary (Female): reports: dysuria, vaginal discharge, contractions. denies: incontinence, hematuria, polyuria, vaginal pain, vaginal bleeding Musculoskeletal: reports: pain, stiffness. denies: tenderness, decrease range of motion Neurologic: denies: numbness, syncope, weakness, headache Integumentary: denies: rash Psychological: reports: depression, anxiety FMR OB H&P: Vital Signs - Maternal Vital signs: Vital Signs - First Documented Temp Pulse Resp BP 98.6 F 99 20 129/79 09/29/19 20:09 09/29/19 20:09 09/29/19 20:09 09/29/19 20:09 - Heart Tones Baseline: 160 (Improved to 140) Variability: moderate Acceleration: present Deceleration: variable (1 in first 20 min strip) Category: category 2 [place] contractions every: intermittent FMR OB H&P: Physical Exam - Physical Exam General: NAD, awake, alert and oriented HEENT: PERRLA, EOMI, MMM, conjunctiva clear Neck: supple, trachea midline Heart: RRR, normal S1/S2, no murmurs/rubs/gallops, pulses present, other (mild swelling of hands, non pitting. No LE edema) General: CTAB, no respiratory distress, good air movement, no rales/rhonchi, no wheezing Abdomen: soft, gravid, non-tender, bowel sound present, other (no CVA tenderness ) Musculoskeletal: normal gait and station, FROM in all four extremities, other ( no tenderness of palpation of lower back, bony or paraspinal muscles) Neurological: no focal deficit Skin: no rash Psychiatric: intact recent and remote memory, good judgement and insight, normal mood and affect - Pelvic Exam SVE: /-3 Membranes: Intact FMR OB H&P: A/P - Problem List (1) Back pain affecting Current Visit: Yes Status: Acute Code(s): O99.89 - OTH DISEASES AND CONDITIONS COMPL PREG/CHLDBRTH; M54.9 - DORSALGIA, UNSPECIFIED (2) Hx of spontaneous , currently Current Visit: Yes Status: Chronic Code(s): O09.299 - SUPRVSN OF PREG W POOR REPRODCTV OR OBSTET HISTORY, UNSP TRI (3) Current Visit: Yes Status: Chronic Qualifiers: Weeks of gestation: 36 weeks Qualified Code(s): Z3A.36 - 36 weeks gestation of Disposition: 24yo @ 36.6wks presents for back pain #Lower back pain in - Late @ 36.6wks - FHT Cat 2 with intermittent contractions and 1 variable decel, baseline 140- 160, accels at admission - seen this morning for decreased movement with reassuring FHT and then increased movement, discharged with labor precautions - Patient with HR upper-90s, afebrile - SVE /-3 - Increased vaginal discharge and dysuria, concern for vaginal/urinary infection - Will check VP3 and straight cath UA - 1L LR bolus - monitor and recheck in approx 2 hours #H/o HSV - cont ppx PCP: TRAV Pryor Dispo: UA clean. VP3 positive for BV. Patient's pain improved to 4/10, given 1L bolus. Contractions spaced out. FHT with baseline 130, no further deccels, moderate variability. Plan to discharge home with labor precautions and OP treatment for BV sent to pharmacy. Routine OB follow up. Patient voiced understanding and agreement of plan, all questions answered. Discussion: Date/Time: 09/29/192050 This H&P was discussed with Dr. Lilly and Dr. Powers who agree with the above documentation and plan.
[2019-09-29] MEDS ORDERED: Lactated Ringer's 1,000 ML IV SCH (21:15)
[2019-09-29 21:44] LABS: Bacteria/HPF None Seen HPF (None Seen); Bilirubin Negative (Negative); Blood, Urine Negative (Negative); Clarity Clear (Clear); Glucose, Urine (Dipstick) Normal (Negative); Leukocyte Negative Leu/uL (Negative); Nitrite Negative (Negative); Protein, Urine (Dipstick) Negative (Neg-Trace); RBC/HPF None Seen HPF (0-3); Squamous Epithelial None Seen HPF (0-3); Urobilinogen Normal mg/dL (Less than 2); WBC/HPF 0-3 HPF (0-3)
[2019-09-29 21:46] LABS: Urine Culture Reflex No No
--- NOTE | 2019-09-29 22:37 | HP ---
OBWOODY ATTENDING: On 28 of September, the patient was seen earlier today in Labor and Delivery. Time of evaluation was roughly 2099, it is now 2114. Location is triage, bed B. This is a patient that the Resident Team saw first as a clinic patient and I also have seen the patient at bedside. I evaluated the patient just as she was about to get her Cath UA and MANAGEMENT TRAINEE-3. In brief, this patient was seen earlier today with decreased movement and was evaluated by myself and Dr. Pryor and the patient had a reactive nonstress test. She was sent home at that time. She states now that she does have good movement, but just has this constant lower back pain and she wanted to get checked out again. Cervical exam is 1 cm dilated, 50 % effaced, but she denies any real contractions or leakage of fluid or vaginal bleeding. She has possible UTI symptoms, little bit of frequency and states now she has had some abnormal discharge, but I does not suspect leakage of fluid. ASSESSMENT AND PLAN: We will order a MANAGEMENT TRAINEE-3 that is vaginitis panel-3 and we will also do a UA for infection. We will keep the patient on the monitor for about 2 hours and see if there is any cervical change. I have reviewed this plan with our Resident Team and with the patient as well. I told her that right now she looks clinically stable. I believe that she is having some discomforts of , maybe some early threatened labor, but I do not suspect that she is in active labor at this time. Her EGA is 36 weeks and 6 days, tomorrow she will be early term at 37 weeks. Job ID: [id number] MTDD
== END 2019-09-29 23:20 | disposition home or self-care (01) ==
LOC: L&D/OP 19:50
PROVIDERS: ATTEND Obstetrics & Gynecology
DX: O99.89 Other specified diseases and conditions complicating pregnancy, childbirth and the puerperium (principal); M54.5 Low back pain; O23.593 Infection of other part of genital tract in pregnancy, third trimester; B96.89 Other specified bacterial agents as the cause of diseases classified elsewhere; O98.513 Other viral diseases complicating pregnancy, third trimester; B00.9 Herpesviral infection, unspecified; O99.343 Other mental disorders complicating pregnancy, third trimester; F41.9 Anxiety disorder, unspecified; F32.9 Major depressive disorder, single episode, unspecified; O99.283 Endocrine, nutritional and metabolic diseases complicating pregnancy, third trimester; E03.9 Hypothyroidism, unspecified; O99.513 Diseases of the respiratory system complicating pregnancy, third trimester; J45.909 Unspecified asthma, uncomplicated; O09.293 Supervision of pregnancy with other poor reproductive or obstetric history, third trimester; Z3A.36 36 weeks gestation of pregnancy; Z79.899 Other long term (current) drug therapy; Z91.018 Allergy to other foods
CPT/HCPCS: 51701; 81001; 87480; 87510; 87660; 96360; 99282; 99284

== ENCOUNTER 2019-10-14 08:55 | Outpatient (CLI) | payer MEDICAID, OTHER ==
[2019-10-15 13:11] LABS: SARS-CoV-2 MS2 Positive; SARS-CoV-2 N Gene Negative; SARS-CoV-2 S Gene Negative; SARS-CoV-2 orf1ab Negative
== END 2019-10-14 08:56 | disposition home or self-care (01) ==
LOC: SCSLAB 08:55
PROVIDERS: ATTEND Family Medicine
DX: Z01.812 Encounter for preprocedural laboratory examination (principal); Z11.59 Encounter for screening for other viral diseases
CPT/HCPCS: 87635; U0003

== ENCOUNTER 2019-10-17 18:34 | Inpatient (IN) | payer MEDICAID, OTHER ==
[2019-10-17] MEDS ORDERED: Promethazine HCl 25 MG/ML VIAL IM PRN (18:53)
[2019-10-17] MEDS ORDERED: NS / Oxytocin 40 units/1000ml 1,000 ML IV PRN (18:53)
[2019-10-17] MEDS ORDERED: Lidocaine 1% (PF) 30 ML VIAL SC PRN (18:53)
[2019-10-17] MEDS ORDERED: hydrALAZINE 20 MG/ML VIAL SLOW IVP PRN (18:53)
[2019-10-17] MEDS ORDERED: Methylergonovine 0.2 MG/ML VIAL IM PRN (18:53)
[2019-10-17] MEDS ORDERED: Ibuprofen 800 MG TAB PO PRN (18:53)
[2019-10-17] MEDS ORDERED: Misoprostol 200 MCG TAB PR PRN (18:53)
[2019-10-17] MEDS ORDERED: Penicillin G Potassium 5 MILL.UNITS in Sodium Chloride 0.9% 100 ML IVPB SCH (19:00)
[2019-10-17 19:46] VITALS: BMI 39.0
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
[2019-10-17] MEDS: Lactated Ringer's 1,000 ML IV SCH (20:28)
[2019-10-17] MEDS: Misoprostol 100 MCG TAB VAG SCH (20:29)
[2019-10-17 21:24] LABS: Mean Corpuscular HGB CONC 34.7 g/dL (32.0-36.0); Mean Corpuscular Hemoglobin 30.5 pg (27.0-31.0); Mean Corpuscular Volume 87.8 fL (78.0-98.0); Mean Platelet Volume 8.4 fL (7.4-10.4); Platelet Count 386 thou/uL (130-400); RBC Distribution Width 12.6 % (11.5-14.5); Red Blood Cell (RBC) Count 3.62 mill/uL (4.20-5.40); White Blood Cell (WBC) Count 14.8 thou/uL (4.8-10.8)
[2019-10-17] MEDS ORDERED: FLUTICASONE PROPIONATE 100 MCG IH PRN (21:35)
[2019-10-17] MEDS ORDERED: Albuterol Sulfate 2.5 mg/3 ml Neb NEB PRN (21:45)
[2019-10-17 22:05] LABS: Syphilis Antibody Nonreactive (Nonreactive); Syphilis Antibody Index 0.04 S/CO (<1.00 Non-Reactive)
[2019-10-17 22:20] LABS: HBSAg Index 0.15 S/CO (0-0.99); Hep B Surf Ag Non-Reactive S/CO (NonReactive)
[2019-10-18] MEDS: Butorphanol Tartrate 1 MG/ML VIAL SLOW IVP PRN ×3 (00:53→11:31)
--- NOTE | 2019-10-18 00:54 | PDOC.OBLPN ---
FMR OB Labor PN: Subj - Interval History Chief Complaint: eIOL Interval History: Reports feeling some cramping with cytotec, requests pain medication. FMR OB Labor PN: Obj - Maternal Vital signs: BP: 96/57 HR: 81 RR: 14 FMR OB Labor PN: Exam - Physical Exam General: NAD, awake, alert and oriented HEENT: normocephalic and atraumatic General: no respiratory distress Musculoskeletal: FROM in all four extremities - Pelvic Exam SVE: /-1 FMR OB Labor PN: Data - Labs Lab results: Laboratory Results - last 24 hr 10/17/19 10/17/19 10/17/19 21:12 21:12 21:12 WBC RBC Hgb Hct MCV MCH MCHC RDW Plt Count MPV Syphilis IgG/IgM Ab Nonreactive Hep Bs Antigen Non-Reactive Blood Type O NEGATIVE Antibody Screen NEGATIVE 10/17/19 21:12 WBC 14.8 H RBC 3.62 L Hgb 11.0 L Hct 31.8 L MCV 87.8 MCH 30.5 MCHC 34.7 RDW 12.6 Plt Count 386 MPV 8.4 Syphilis IgG/IgM Ab Hep Bs Antigen Blood Type Antibody Screen FMR OB Labor PN: A/P - Problem List (1) Current Visit: No Status: Chronic Qualifiers: Weeks of gestation: 39 weeks Qualified Code(s): Z3A.39 - 39 weeks gestation of Disposition: IOL: -/1 @ 0043 -some tachysystole, likely 2/2 cytotec -will hold cytotec until contraction pattern improves -no concerns on FHT monitoring, continue to monitor -recheck in 4 hours -stadol given for cramping Discussion: Date/Time: 10/18/19 0053 This H&P was discussed with Dr. Ragland and Dr. Forman who agree with the above documentation and plan.
[2019-10-18] MEDS: Ondansetron PF 4 MG/2 ML Vial IVP PRN (05:17)
[2019-10-18] MEDS: Lactated Ringer's 1,000 ML IV SCH ×3 (05:19→16:34)
[2019-10-18] MEDS ORDERED: FAMCICLOVIR 125 MG PO SCH (09:00)
--- NOTE | 2019-10-18 09:03 | PDOC.LDPN ---
Labor & Delivery Progress Note - Subjective Subjective: painful contractions, other (Back pain) - Objective Abnormal vital signs: Hypotensive, 80-100s/50-60 General: resting Uterine fundus: non tender SVE: 2.5/50/-1 FHT: category 1, category 2 [place] contractions every: Patient reports feeling ctx Plan: continue plan of care -: Disposition: eIOL for sIUP: at 39.2 wks, Oden score 8, no contractions prior to arrival -cytotec @ 2030 1st dose, held 2/2 tachysystole - Cat. 2 2/2 some minimal variability in strip -continue to monitor FHR -confirmed vertex position with bedside US -Will discuss labor augmentation options - SVE: 2.5/50/-1 @ 0900 GBS positive -1 dose of PCN given 0900 HSV -Taking ppx, will continue -No active lesions on external exam and speculum exam Mild intermittent asthma -controlled per pt, not taking singulair at home -continue advair, prn proair -will avoid hemabate Hx recurrent SABs -will review chart for previous workup/etiology Hashimotos thyroiditis -continue synthroid MDD PTSD -mood stable -continue home zoloft Addendum - Attending - Attending Attestation Date/Time: 10/18/19 1016 I personally evaluated the patient and discussed the management with Dr. Rico I agree with the History, Examination, Assessment and Plan documented above with any addition or exceptions noted below. 24 yo female at 39.4 wks by LMP/10.3 wks here for eIOL Patient doing well. Received 1 miso overnight. Noted to have true tachysystole with dose. Fetus with cat 2. Now after resolution of miso cat 1. Soft BP but normal for patient. Risk for hypotension with epidural placement. Would give ppx bolus and monitor closely. Fetus has already demonstrated not liking frequent contractions. - eIOL in SIUP: Term. IOB labs reviewed. s/p Tdap. Anatomy grossly normal. 2T/ 3T labs negative. GBS pos. Miso x1. Intact. Cephalic. EFW 8 lbs. 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 No outbreaks during . Has been on ppx. Continue until delivery. Monitor for lesion on infant. - Mild intermittent asthma, controlled: Continue advair, singulair, and prn albuterol. - Autoimmune thyroiditis: Continue L4. Keep dose at 50 mcg. TSH not at goal peripartum but not significant (3.4). - MDD and PTSD: On Zoloft. Continue. Risk for RDN. - Recurrent SAB: Workup negative. - GBS carrier: Continue PCN until delivery. q 4 hour SVE until active labor. Place balloon and start pitocin. Monitoring tracing hourly. Jorge L
--- NOTE | 2019-10-18 10:52 | PDOC.LDPN ---
Labor & Delivery Progress Note - Subjective Subjective: painful contractions (With back pain) - Objective Abnormal vital signs: BP low SBP 80-100, DBP 50-60 General: NAD Uterine fundus: non tender SVE: /-2 FHT: category 1 Procedures: Cook balloon placed Plan: labor augmentation, pitocin for augmentation -: eIOL for sIUP: at 39.2 wks, Oden score 8, no contractions prior to arrival -cytotec @ 2030 1st dose, held 2/2 tachysystole - Cat. 2 2/2 some minimal variability in strip, now cat. 1 -continue to monitor FHR -confirmed vertex position with bedside US - SVE: -2 @ 1045 - Cook balloon placed @ 1045 - Plan to start Pitocin @ 2cc/hr, if patient doesn't tolerate pitocin, place epidural GBS positive -1 dose of PCN given 0900 HSV -Taking ppx, will continue -No active lesions on external exam and speculum exam -Patient denies ever having outbreak, was tested after sexual encounter Mild intermittent asthma -controlled per pt, not taking singulair at home -continue advair, prn proair -will avoid hemabate Hx recurrent SABs -will review chart for previous workup/etiology Hashimotos thyroiditis -continue synthroid MDD PTSD -mood stable -continue home zoloft 50 Addendum - Attending - Attending Attestation Date/Time: 10/18/19 1223 I personally evaluated the patient and discussed the management with Dr. Rico I agree with the History, Examination, Assessment and Plan documented above with any addition or exceptions noted below. Balloon placed easily. Will start pitocin per protocol. Continue monitoring. Epidural as desires. Continue PNC every 4 hours ABrayMD
[2019-10-18] MEDS ORDERED: Lidocaine 1% (PF) 30 ML VIAL SC PRN (11:35)
[2019-10-18] MEDS ORDERED: NS / Oxytocin 40 units/1000ml 1,000 ML ONE (12:01)
[2019-10-18] MEDS: NS w/ Oxytocin 10 units 500 ML IV SCH (12:16)
[2019-10-18] MEDS: Penicillin G 2.5 MILL.units 2.5 MILL.UNITS in Premix Bag 1 BAG IVPB SCH ×5 (12:35→20:42)
--- NOTE | 2019-10-18 13:41 | PDOC.LDPN ---
Labor & Delivery Progress Note - Subjective Subjective: comfortable - Objective Vital signs reviewed and normal: yes General: NAD Uterine fundus: non tender SVE: /-2 FHT: category 1 [place] contractions every: 3-4 mins Plan: continue plan of care -: eIOL for sIUP: at 39.2 wks, Oden score 8, no contractions prior to arrival -cytotec @ 2030 1st dose, held 2/2 tachysystole - Cat. 2 2/2 some minimal variability in strip, now cat. 1 -continue to monitor FHR -confirmed vertex position with bedside US - SVE: /-2 @ 1315 from /-2 @ 1045 - Cook balloon placed @ 1045, fell out at 1315 - Increase Pitocin to 4cc/hr, if patient doesn't tolerate pitocin, place epidural GBS positive -1 dose of PCN given 0900 HSV -Taking ppx, will continue -No active lesions on external exam and speculum exam -Patient denies ever having outbreak, was tested after sexual encounter Mild intermittent asthma -controlled per pt, not taking singulair at home -continue advair, prn proair -will avoid hemabate Hx recurrent SABs -will review chart for previous workup/etiology Hashimotos thyroiditis -continue synthroid MDD PTSD -mood stable -continue home zoloft 50 1344: patient desires epidural at this time Addendum - Attending - Attending Attestation Date/Time: 10/18/19 5368 I personally evaluated the patient and discussed the management with Dr. Rico I agree with the History, Examination, Assessment and Plan documented above with any addition or exceptions noted below. Balloon pulled out by patient when she went to bathroom. Now 4 cm. Still not in active labor. Continue pit per protocol. Cat 1 tracing. Continue PCN. Repeat exam in 4 hours. FHT q 1 hour ABrayMD
[2019-10-18] MEDS ORDERED: Fentanyl 4 mcg/Bup 0.1% Cadd 100 ML ONE ×2 (13:44→22:05)
[2019-10-18] MEDS ORDERED: Promethazine HCl 25 MG/ML VIAL IM PRN (14:39)
[2019-10-18] MEDS ORDERED: Lactated Ringer's 500 ML IV PRN (14:39)
[2019-10-18] MEDS ORDERED: EPHEDRINE 25 MG/5 ML SYRINGE SLOW IVP PRN (14:39)
[2019-10-18] MEDS ORDERED: Naloxone HCl 0.4 mg/ml Vial IVP PRN ×2 (14:39)
[2019-10-18] MEDS ORDERED: Ondansetron PF 4 MG/2 ML Vial IVP PRN (14:39)
[2019-10-18] MEDS ORDERED: diphenhydrAMINE 50 MG/ML VIAL IVP PRN (14:39)
[2019-10-18] MEDS: Misoprostol 100 MCG TAB VAG SCH ×2 (14:40→14:41)
[2019-10-18] MEDS: Prenatal Vitamin 1 TAB PO SCH (14:42)
[2019-10-18] MEDS: Levothyroxine Sodium 50 MCG TAB PO SCH (14:42)
[2019-10-18] MEDS ORDERED: Communication Order-Pharmacy FS SCH (14:45)
--- NOTE | 2019-10-18 19:45 | PDOC.LDPN ---
Labor & Delivery Progress Note - Subjective Subjective: painful contractions - Objective Vital signs reviewed and normal: yes General: resting Uterine fundus: palpable contractions SVE: cervical check performed @ 1850 Dilation: 5 Effacement: 75% Station: -1 FHT: category 1, variability present [place] contractions every: Was noted to be nannette q1-3 minutes before turning on side for comfort Resuscitative measures: maternal IV fluids - Assessment (1) Term Code(s): Z34.90 - ENCNTR FOR SUPRVSN OF NORMAL , UNSP, UNSP TRIMESTER Current Visit: Yes Status: Acute (2) Hx of spontaneous , currently Code(s): O09.299 - SUPRVSN OF PREG W POOR REPRODCTV OR OBSTET HISTORY, UNSP TRI Current Visit: No Status: Chronic Plan: pitocin for augmentation -: at 39.2 wks who presented for a AME eIOL @ 39.1 WGA. Term sIUP in labor: - Cat. 1 strip. - SVE: /-1 @ [address]. [address]. - Pit up to 12 now. - Will continue titrating pit as contraction pattern & fetus allow/tolerate. GBS positive -s/p 2 doses of PCN thus far. 3rd started/given @ ~1645. HSV -Taking ppx, will continue -No active lesions on external exam and speculum exam -Patient denies ever having outbreak, was tested after sexual encounter Mild intermittent asthma -controlled per pt, not taking singulair at home -continue advair, prn proair -will avoid hemabate if PPH develops Hx recurrent SABs -will review chart for previous workup/etiology Hashimotos thyroiditis -continue synthroid MDD & PTSD -mood stable -continue home zoloft 50 Dispo: Will continue close monitoring w/ plans for AROM w/ IUPC placement @ next cervical check in ~3 hours if no SROM by then.
[2019-10-18] MEDS: Fentanyl 4 mcg/Bupivacaine 0.1% Cassette 100 ML EPIDURAL SCH (22:09)
--- NOTE | 2019-10-18 22:38 | PDOC.LDPN ---
Labor & Delivery Progress Note - Subjective Subjective: comfortable - Objective Vital signs reviewed and normal: yes General: NAD, breathing through contractions Uterine fundus: palpable contractions Dilation: 5 Effacement: 75% Station: -1 FHT: category 1, early decelerations [place] contractions every: 2 minutes AROM: clear fluid IUPC placed: yes FSE placed: yes - Assessment (1) Term Code(s): Z34.90 - ENCNTR FOR SUPRVSN OF NORMAL , UNSP, UNSP TRIMESTER Current Visit: Yes Status: Acute (2) Hx of spontaneous , currently Code(s): O09.299 - SUPRVSN OF PREG W POOR REPRODCTV OR OBSTET HISTORY, UNSP TRI Current Visit: No Status: Chronic -: at 39.2 wks who presented for a AME eIOL @ 39.1 WGA. Term sIUP in labor: - Cat 1 strip w/ baseline 150s & some early decels now. - SVE: /-1 @ 2145. Epidural still in place w/ AROM of clear fluid just after SVE. FSE & IUPC now in place. - Pit still @ ~ 12. - Will continue titrating pit to maintain an adequate contraction pattern as tolerate. GBS positive -s/p 3 doses of PCN thus far. 4th started @ ~2041. HSV -Taking ppx, will continue -No active lesions on external exam and speculum exam -Patient denies ever having outbreak, was tested after sexual encounter Mild intermittent asthma -controlled per pt, not taking singulair at home -continue advair, prn proair -will avoid hemabate if PPH develops Hx recurrent SABs -will review chart for previous workup/etiology Hashimotos thyroiditis -continue synthroid MDD & PTSD -mood stable -continue home zoloft 50 Dispo: Will continue close monitoring & titrating pitocin to maintain adequate contractions w/ internals now in place. Recheck in ~3 hours or sooner should patient report increased pressure.
[2019-10-19] MEDS: Penicillin G 2.5 MILL.units 2.5 MILL.UNITS in Premix Bag 1 BAG IVPB SCH ×4 (02:17→18:33)
--- NOTE | 2019-10-19 02:26 | PDOC.LDPN ---
Labor & Delivery Progress Note - Subjective Subjective: comfortable - Objective Vital signs reviewed and normal: yes General: resting Dilation: 7 Effacement: 75% Station: -1 FHT: category 1, variability present [place] contractions every: 1-3 minutes AROM: clear fluid IUPC placed: yes FSE placed: yes - Assessment (1) Term Code(s): Z34.90 - ENCNTR FOR SUPRVSN OF NORMAL , UNSP, UNSP TRIMESTER Current Visit: Yes Status: Acute (2) Hx of spontaneous , currently Code(s): O09.299 - SUPRVSN OF PREG W POOR REPRODCTV OR OBSTET HISTORY, UNSP TRI Current Visit: No Status: Chronic Plan: pitocin for augmentation -: at 39.5 wks who presented for a AME eIOL @ 39.1 WGA. Term sIUP in labor: - Cat 1 strip w/ baseline 150s & still some occasional early decels now. - SVE: /-1 @ 2146. Epidural still in place, s/p AROM ~ 4 hours ago & FSE & IUPC still in place. - cMVUs now just under 200 so will increase pit to 14 now. Will continue titrating pit to maintain an adequate contraction pattern as tolerate. GBS positive -s/p 4 doses of PCN thus far. HSV -Taking ppx, will continue -No active lesions on external exam and speculum exam -Patient denies ever having outbreak, was tested after sexual encounter Mild intermittent asthma -controlled per pt, not taking singulair at home -continue advair, prn proair -will avoid hemabate if PPH develops Hx recurrent SABs -will review chart for previous workup/etiology Hashimotos thyroiditis -continue synthroid MDD & PTSD -mood stable -continue home zoloft 50 Dispo: Will continue close monitoring & titrating pitocin to maintain adequate contractions. Recheck in ~2 hours or sooner should patient report increased pressure.
[2019-10-19] MEDS ORDERED: Fentanyl 4 mcg/Bup 0.1% Cadd 100 ML ONE (04:54)
[2019-10-19] MEDS: Fentanyl 4 mcg/Bupivacaine 0.1% Cassette 100 ML EPIDURAL SCH (04:58)
[2019-10-19] MEDS ORDERED: Dextrose 5%-Lactated Ringers 1,000 ML IV SCH (05:00)
[2019-10-19] MEDS: NS w/ Oxytocin 10 units 500 ML IV SCH (05:01)
[2019-10-19] MEDS: Ondansetron PF 4 MG/2 ML Vial IVP PRN (05:52)
--- NOTE | 2019-10-19 06:45 | PDOC.LDPN ---
Labor & Delivery Progress Note - Subjective Subjective: comfortable - Objective Vital signs reviewed and normal: yes General: NAD Dilation: 8 Effacement: 90% FHT: category 2 [place] contractions every: 2-4 minutes AROM: clear fluid IUPC placed: yes FSE placed: yes Resuscitative measures: maternal IV fluids (D5LR), maternal position change - Assessment (1) Term Code(s): Z34.90 - ENCNTR FOR SUPRVSN OF NORMAL , UNSP, UNSP TRIMESTER Current Visit: Yes Status: Acute (2) Hx of spontaneous , currently Code(s): O09.299 - SUPRVSN OF PREG W POOR REPRODCTV OR OBSTET HISTORY, UNSP TRI Current Visit: No Status: Chronic Plan: pitocin for augmentation -: at 39.5 wks who presented for a AME eIOL @ 39.1 WGA. Term sIUP in labor: - Cat II strip w/ baseline 150s & still some occasional early decels now. - SVE: /0 @ 0545. Epidural still in place, s/p AROM & FSE & IUPC still in place. - Pit @ ~16. Will continue titrating pit to maintain an adequate contraction pattern as tolerated. GBS positive -s/p 4 doses of PCN thus far. HSV -Taking ppx, will continue -No active lesions on external exam and speculum exam -Patient denies ever having outbreak, was tested after sexual encounter Mild intermittent asthma -controlled per pt, not taking singulair at home -continue advair, prn proair -will avoid hemabate if PPH develops Hx recurrent SABs -will review chart for previous workup/etiology Hashimotos thyroiditis -continue synthroid MDD & PTSD -mood stable -continue home zoloft 50 Dispo: Will continue close monitoring & titrating pitocin to maintain adequate contractions. Will recheck in ~2 hours or sooner should patient report increased pressure.
[2019-10-19] MEDS ORDERED: NS / Oxytocin 40 units/1000ml 1,000 ML ONE (07:14)
[2019-10-19] MEDS ORDERED: Methylergonovine 0.2 MG/ML VIAL ONE (07:30)
[2019-10-19] MEDS ORDERED: Misoprostol 200 MCG TAB ONE (07:30)
--- NOTE | 2019-10-19 07:58 | PDOC.LDPN ---
Labor & Delivery Progress Note - Subjective Subjective: comfortable, vaginal pressure - Objective Vital signs reviewed and normal: yes General: NAD, resting Dilation: 9 Effacement: 90% Station: 1+ FHT: category 1, category 2 [place] contractions every: 2-4min IUPC placed: yes FSE placed: yes Plan: continue plan of care, labor augmentation -: at 39.5 wks who presented for a AME eIOL @ 39.1 WGA. Term sIUP in labor: - Cat I- II strip due to minimal variability at times. Improvement with switch to D5LR. Continue this - SVE: /+1 @ 0800 - Epidural still in place, s/p AROM & FSE & IUPC still in place. - CTX q2-4min. Pit @ ~18. Will continue titrating pit to maintain an adequate contraction pattern as tolerated. GBS positive -s/p 4 doses of PCN thus far. HSV -Taking ppx, will continue -No active lesions on external exam and speculum exam -Patient denies ever having outbreak, was tested after sexual encounter Mild intermittent asthma -controlled per pt, not taking singulair at home -continue advair, prn proair -will avoid hemabate if PPH develops Hx recurrent SABs -will review chart for previous workup/etiology Hashimotos thyroiditis -continue synthroid 50mcg PP MDD & PTSD -mood stable -continue home zoloft 50kg Dispo: Recheck in 30 minutes or sooner. Currently Cat I strip with check.
[2019-10-19] MEDS: NS / Oxytocin 40 units/1000ml 1,000 ML IV PRN ×2 (09:14→12:25)
[2019-10-19] MEDS: Prenatal Vitamin 1 TAB PO SCH (10:52)
[2019-10-19] MEDS: Misoprostol 100 MCG TAB VAG SCH ×2 (10:53→11:47)
[2019-10-19] MEDS ORDERED: Adacel (T-DAP) 0.5 ML SYRINGE IM ONE (12:25)
[2019-10-19] MEDS ORDERED: Bisacodyl 10 MG SUPP PR PRN (12:25)
[2019-10-19] MEDS ORDERED: Preparation H Ointment 28 GM TUBE PR PRN (12:25)
[2019-10-19] MEDS ORDERED: Milk Of Magnesia 30 ML UDCUP PO PRN (12:25)
[2019-10-19] MEDS ORDERED: Lanolin Ointment 7 GM TUBE TOP PRN (12:25)
[2019-10-19] MEDS ORDERED: hydrALAZINE 20 MG/ML VIAL SLOW IVP PRN (12:25)
[2019-10-19] MEDS ORDERED: Ondansetron PF 4 MG/2 ML Vial IVP PRN (12:25)
[2019-10-19] MEDS ORDERED: Benzocaine-Menthol 82.5 ML CAN TOP PRN (12:25)
[2019-10-19] MEDS ORDERED: NS / Oxytocin 40 units/1000ml 1,000 ML IV SCH (12:25)
[2019-10-19] MEDS ORDERED: diphenhydrAMINE 25 MG CAP PO PRN (12:25)
[2019-10-19] MEDS ORDERED: Bupivacaine 0.25% HCL 30 ML VIAL ONE (12:38)
[2019-10-19] MEDS ORDERED: EPHEDRINE 25 MG/5 ML SYRINGE ONE (12:38)
[2019-10-19] MEDS ORDERED: Bupivacaine/Epinephrine 0.25% 30 ML VIAL ONE (12:38)
--- NOTE | 2019-10-19 14:06 | PDOC.OPDEL ---
OB Operative/Delivery Note Delivery Dr/Surgeon: Maxx Rico Pope Pre-Delivery Diagnosis: elective induction Procedure/Post Delivery Dx: spontaneous vaginal delivery (with episiotomy) Weeks gestation: 39 (39.4) Anesthesia: epidural - Additional Findings/Plan Placenta delivered: spontaneous Repaired Obstetrical Laceration: 2nd degree Estimated blood loss: 210 Compilations/Other Findings: Delivering Physician: Dr. iRco and Dr. Lilly Attending Dr. Allen Procedure: Spontaneous Vaginal Delivery Anesthesia: epidural and local EBL: 210 ml Pre-op Diagnosis: 1. Term intrauterine in labor 2. HSV 2 on adequate prophylaxis 3. GBS + s/p adequate tx 4. Rh - s/p RhoGam 5. Heather's thyroiditis 6. MDD 7. Asthma Post-op Diagnosis: 1. Term intrauterine , delivered 2-7 same as above Indications: A 24y/o female presents for elective induction of labor Delivery Note: This is 24yo F -> 1 @ 39.4 wks who delivered a viable M at 0909 on 10/19/19. The patient labored for >24 hours and when patient was at 9+ cm, baby had decels and minimal variability. Intrapartum, baby was noted to have nonrecovering bradycardia that prompted an episiotomy. A vigorous M was delivered over the perineum in the occipitoanterior position. Anterior Shoulder and then remainder of the body delivered. Nuchal cord X1 R Leg and Arm was delivered through and reduced. The baby was placed on mom's belly and mouth and nares were bulb suctioned. Cord was clamped and cut 2/2 monitoring intrapartum and cord blood collected. Placenta delivered intact with a 3 vessel cord noted. Fundal massage was performed and the fundus was firm. The lower uterine segment was persistently boggy. The cervix was inspected with no lacerations. The vagina was inspected and found to have BLT labia majora lacerations and episiotomy laceration that were repaired with 3-0 vicryl after applying local anesthetic. went to nursery in good condition for routine care. Apgars were 8/9 at 1 & 5 minutes, respectively. Patient tolerated delivery well and went to after routine recovery/care. Post delivery plan: routine recovery
[2019-10-19] MEDS: Ibuprofen 800 MG TAB PO SCH ×2 (16:58→22:11)
[2019-10-19] MEDS: Ferrous Sulfate 325 MG TAB PO SCH (17:02)
[2019-10-19] MEDS: Levothyroxine Sodium 50 MCG TAB PO SCH (18:33)
[2019-10-19] MEDS: Lactated Ringer's 1,000 ML IV SCH (18:53)
[2019-10-19] MEDS: Acetaminophen 325 MG TAB PO PRN (20:26)
[2019-10-19] MEDS: Docusate Calcium (SURFAK) 240 MG CAP PO SCH (22:11)
[2019-10-20] MEDS: Ibuprofen 800 MG TAB PO SCH ×3 (05:55→22:36)
[2019-10-20] MEDS: Levothyroxine Sodium 50 MCG TAB PO SCH (05:55)
--- NOTE | 2019-10-20 06:22 | PDOC.PP ---
Post Progress Note Post Day #: 1 PO intake tolerated: yes Flatus: yes Ambulation: yes Vital Signs (12 hours) Temp Pulse Resp BP Pulse Ox 10/20/19 04:35 98.3 F 76 18 98/53 L 97 10/20/19 00:45 98.4 F 75 18 100/58 L 97 10/19/19 21:20 98.6 F 82 18 98/53 L 98 Weight Weight 90.718 kg - Physical Examination General: NAD Cardiovascular: no m/r/g, RRR Respiratory: clear to auscultation bilaterally, non-labored breathing Abdominal: + bowel sounds, lochia, no distention, appropriately TTP Neurological: no gross focal deficits Psychiatric: A&Ox3, normal affect Result Diagrams: 10/17/19 21:12 Additional Labs: Post Labs Blood Type O NEGATIVE 10/17/19 21:12 Hep Bs Antigen Non-Reactive S/CO (NonReactive) 10/17/19 21:12 - Assessment/Plan -> 1 at 39.5 wks who presented for a AME eIOL @ 39.1 WGA. Delivery of TAGA male - with episiotomy and labial labial lacerations - routine pp care - Rh-, baby +, s/p 2 pre-delivery doses of rhogam, received one dose pp - examine laceration repair before d/c 10/21/19 GBS positive - received adequate tx intrapartum HSV -Taking ppx, will continue -No active lesions on external exam and speculum exam -Patient denies ever having outbreak, was tested after sexual encounter Mild intermittent asthma -controlled per pt, not taking singulair at home -continue advair, prn proair -will avoid hemabate Hashimotos thyroiditis -continue synthroid 50mcg PP MDD & PTSD -mood stable -continue home zoloft 50mg Hx recurrent SABs -Chart review for workup Dispo: Recheck in 30 minutes or sooner. Currently Cat I strip with check.
[2019-10-20] MEDS ORDERED: FLUTICASONE PROPIONATE 100 MCG IH SCH (09:00)
[2019-10-20] MEDS: Docusate Calcium (SURFAK) 240 MG CAP PO SCH ×2 (09:51→22:36)
[2019-10-20] MEDS: Ferrous Sulfate 325 MG TAB PO SCH ×2 (09:51→16:36)
[2019-10-20] MEDS: Prenatal Vitamin 1 TAB PO SCH (09:51)
[2019-10-20] MEDS: Acetaminophen 325 MG TAB PO PRN (16:33)
[2019-10-21] MEDS: Ibuprofen 800 MG TAB PO SCH (05:57)
[2019-10-21] MEDS: Levothyroxine Sodium 50 MCG TAB PO SCH (05:58)
[2019-10-21 06:06] VITALS: TEMP 98.5
--- NOTE | 2019-10-21 07:29 | PDOC.PP ---
Post Progress Note Post Day #: 2 Subjective: Patient says she is feeling well. She has not been eating well for the past day but states that her desire to eat has greatly improved overnight. Scant vaginal bleeding. No headache, vision change, chest pain, SOB, and abdominal pain. She desires OCP for control. PO intake tolerated: yes Flatus: yes Ambulation: yes Vital Signs (12 hours) Temp Pulse Resp BP Pulse Ox 10/20/19 20:05 98.5 F 71 18 97/50 L 98 10/20/19 20:00 99 Weight Weight 90.718 kg - Physical Examination General: NAD Cardiovascular: no m/r/g, RRR Respiratory: clear to auscultation bilaterally, non-labored breathing Abdominal: + bowel sounds, no distention, appropriately TTP Perineum: Episiotomy and labia majora laceration repair healing well. Psychiatric: A&Ox3, normal affect Result Diagrams: 10/17/19 21:12 Additional Labs: Post Labs Blood Type O NEGATIVE 10/17/19 21:12 Hep Bs Antigen Non-Reactive S/CO (NonReactive) 10/17/19 21:12 - Assessment/Plan Post day 2. at 39.3 weeks. Patient advised to increased fluid intake to improve breast milk supply. consult placed. Episiotomy and labia majora repair healing appropriately. Patient can be discharged home today. She will follow up with [facility] in 2 weeks. She was counseled on routine care. Upper level/Continuity Note: * Patient seen with sports internship. Doing well. She needs to drink more water so she can adequately breastfeed. * consult today, hopefully this morning so pt can be d/c'd early this afternoon. * episiotomy incision examined: normal and healing well. * f/u in 2 weeks at [facility]. Pelvic rest x6 weeks. Mariangel Skelton, PGY2
[2019-10-21 08:25] VITALS: BP 107/60
[2019-10-21] MEDS: Prenatal Vitamin 1 TAB PO SCH (08:54)
[2019-10-21] MEDS: Docusate Calcium (SURFAK) 240 MG CAP PO SCH (08:54)
[2019-10-21] MEDS: Ferrous Sulfate 325 MG TAB PO SCH (08:54)
== END 2019-10-21 12:40 | disposition home or self-care (01) | DRG 806 ==
LOC: L&D 18:34 → 3SW 10-19 12:51
PROVIDERS: ADMIT Family Medicine; ATTEND Family Medicine
PROC: 3E0P7VZ Introduction of Hormone into Female Reproductive, Via Natural or Artificial Opening (ICD-10-PCS; 2019-10-17)
PROC: 0U7C7ZZ Dilation of Cervix, Via Natural or Artificial Opening (ICD-10-PCS; 2019-10-18)
PROC: 10907ZC Drainage of Amniotic Fluid, Therapeutic from Products of Conception, Via Natural or Artificial Opening (ICD-10-PCS; 2019-10-18)
PROC: 10H07YZ Insertion of Other Device into Products of Conception, Via Natural or Artificial Opening (ICD-10-PCS; 2019-10-18)
PROC: 4A1HXFZ Monitoring of Products of Conception, Cardiac Rhythm, External Approach (ICD-10-PCS; 2019-10-18)
PROC: 10E0XZZ Delivery of Products of Conception, External Approach (ICD-10-PCS; principal; 2019-10-19)
PROC: 0KQM0ZZ Repair Perineum Muscle, Open Approach (ICD-10-PCS; 2019-10-19)
PROC: 0W8NXZZ Division of Female Perineum, External Approach (ICD-10-PCS; 2019-10-19)
PROC: 3E0334Z Introduction of Serum, Toxoid and Vaccine into Peripheral Vein, Percutaneous Approach (ICD-10-PCS; 2019-10-19)
PROC: 3E0234Z Introduction of Serum, Toxoid and Vaccine into Muscle, Percutaneous Approach (ICD-10-PCS; 2019-10-20)
DX: O99.824 Streptococcus B carrier state complicating childbirth (principal); O98.52 Other viral diseases complicating childbirth; Z37.0 Single live birth; Z3A.39 39 weeks gestation of pregnancy; O99.344 Other mental disorders complicating childbirth; O99.52 Diseases of the respiratory system complicating childbirth; O99.284 Endocrine, nutritional and metabolic diseases complicating childbirth; E06.3 Autoimmune thyroiditis; F32.9 Major depressive disorder, single episode, unspecified; J45.20 Mild intermittent asthma, uncomplicated; F43.10 Post-traumatic stress disorder, unspecified; B00.9 Herpesviral infection, unspecified; Z79.899 Other long term (current) drug therapy; Z79.890 Hormone replacement therapy; Z79.51 Long term (current) use of inhaled steroids; Z91.018 Allergy to other foods; O26.53 Maternal hypotension syndrome, third trimester; O70.1 Second degree perineal laceration during delivery; Z23 Encounter for immunization
CPT/HCPCS: 36415; 85027; 85461; 86780; 86850; 86900; 86901; 87340; 88307; 90384; 90471; 90732; 96372; G0009; J0595; J2210; J2405; J2540; J2590; J3490; S0020

== ENCOUNTER 2020-01-29 23:00 | Emergency (ER) | payer OTHER ==
[~2020-01-29 23:00] MED LIST: Iopamidol-370 76% 500 ML 1 ML ONE
--- NOTE | 2020-01-29 23:48 | RAD ---
Chest AP view INDICATION: Dyspnea with history of asthma COMPARISON: Prior exam dated July 11, 2019 FINDINGS: Lungs: The lungs are clear Cardiac silhouette: The cardiomediastinal silhouette appears within normal limits. Pulmonary vasculature: Normal Pleural spaces: No pleural effusion or pneumothorax is demonstrated. Upper abdomen: No abnormality seen. Osseous structures: No acute osseous abnormality. Additional findings: None. IMPRESSION: No acute cardiopulmonary abnormality.
--- NOTE | 2020-01-30 00:06 | CT ---
CTA Angio Chest W WO Con 01/29/2020 11:36 PM Indication: with elevated d-dimer and dyspnea Technique: Multiple CTA images were obtained of the thorax with IV contrast. 3-D rendering: MIP jay nstructed images were created and reviewed. Comparison: Prior exam dated July 11, 2019 Findings: Pulmonary arteries: No definite central or segmental pulmonary embolus is evident. The time of the c ontrast bolus limits evaluation of the segmental pulmonary arteries. Heart and Aorta: Normal appearing. Mediastinum:Normal appearing. No enlarged lymph nodes. Lungs:The lungs are clear. Pleural space: Clear. Upper Abdomen: There is diffuse fatty infiltration of the liver. Osseous Structures: No acute osseous abnormality. Soft tissues:No abnormality. Other findings:None. Impression: No central pulmonary embolus demonstrated. Diffuse fatty infiltration of the liver.
== END 2020-01-30 00:52 | disposition home or self-care (01) ==
LOC: ERS 23:00
DX: J45.901 Unspecified asthma with (acute) exacerbation (principal); F41.9 Anxiety disorder, unspecified; F32.9 Major depressive disorder, single episode, unspecified
CPT/HCPCS: 71045; 71275; Q9967

== ENCOUNTER 2020-06-04 10:09 | Emergency (ER) | payer OTHER ==
[2020-06-04] MEDS ORDERED: Ketorolac Tromethamine 30 MG/ML VIAL ONE (10:47)
--- NOTE | 2020-06-04 11:04 | RAD ---
EXAM: 3 views of the right foot HISTORY: Small toe pain COMPARISON: None FINDINGS: 3 views of the right foot shows a spiral fracture of the proximal phalanx of the small toe. Surrounding soft tissue swelling is seen. No degenerative changes are present. IMPRESSION: Proximal phalanx fracture of the small toe
== END 2020-06-04 11:22 | disposition home or self-care (01) ==
LOC: ERS 10:09
DX: S92.511A Displaced fracture of proximal phalanx of right lesser toe(s), initial encounter for closed fracture (principal); J45.909 Unspecified asthma, uncomplicated; W22.8XXA Striking against or struck by other objects, initial encounter
CPT/HCPCS: 96372; J1885

== ENCOUNTER 2020-07-13 11:45 | Emergency (ER) | payer OTHER ==
[2020-07-13 12:37] LABS: #Basophils 0.1 thou/uL (0.0-0.2); #Eosinphils 0.2 thou/uL (0.0-0.7); #Lymphocytes 2.5 thou/uL (1.20-3.40); #Monocytes 0.6 thou/uL (0.11-0.59); #Neutrophils 4.9 thou/uL (1.40-6.50); %Eosinophils 2.9 % (0.0-10.0); %Lymphocytes 29.8 % (21.0-51.0); %Monocytes 6.7 % (0.0-10.0); %Neutrophils 59.6 % (42.0-75.0); Hemoglobin 13.7 g/dL (12.0-16.0); Mean Corpuscular Volume 91.3 fL (78.0-98.0); Mean Platelet Volume 7.9 fL (7.4-10.4); Platelet Count 346 thou/uL (130-400); RBC Distribution Width 12.3 % (11.5-14.5); Red Blood Cell (RBC) Count 4.41 mill/uL (4.20-5.40); White Blood Cell (WBC) Count 8.2 thou/uL (4.8-10.8)
[2020-07-13 13:31] LABS: Bacteria/HPF None Seen HPF (None Seen); Bilirubin Negative (Negative); Blood, Urine 3+ (Negative); Clarity Clear (Clear); Glucose, Urine (Dipstick) Normal (Negative); Ketone, Urine Negative (Negative); Leukocyte 25 Leu/uL (Negative); Nitrite Negative (Negative); Protein, Urine (Dipstick) Negative (Neg-Trace); RBC/HPF Greater than 50 HPF (0-3); Specific Gravity, Urine 1.009 (1.002-1.036); Squamous Epithelial 0-3 HPF (0-3); Urobilinogen Normal mg/dL (Less than 2)
== END 2020-07-13 15:14 | disposition home or self-care (01) ==
LOC: ERS 11:45
DX: O03.80 Unspecified complication following complete or unspecified spontaneous abortion (principal); O99.511 Diseases of the respiratory system complicating pregnancy, first trimester; J45.909 Unspecified asthma, uncomplicated; Z3A.01 Less than 8 weeks gestation of pregnancy
CPT/HCPCS: 36415; 76856; 81003; 81015; 84702; 85025; 86850; 86900; 86901; 90384; 96372

== ENCOUNTER 2020-10-08 15:33 | Emergency (ER) | payer OTHER | END 2020-10-08 17:04 | disposition home or self-care (01) | LOC: ERS 15:33 | DX: R68.83 Chills (without fever) (principal); E03.9 Hypothyroidism, unspecified; Z79.899 Other long term (current) drug therapy; J45.909 Unspecified asthma, uncomplicated | CPT/HCPCS: 87081; 87430; 99283 ==

== ENCOUNTER 2020-11-22 11:58 | Emergency (ER) | payer OTHER ==
[2020-11-22] MEDS ORDERED: Ondansetron PF 4 MG/2 ML Vial ONE (12:42)
[2020-11-22 13:03] LABS: #Eosinphils 0.1 thou/uL (0.0-0.7); #Lymphocytes 1.5 thou/uL (1.20-3.40); #Monocytes 0.4 thou/uL (0.11-0.59); #Neutrophils 3.5 thou/uL (1.40-6.50); %Basophils 0.6 % (0.0-1.0); %Eosinophils 2.2 % (0.0-10.0); %Lymphocytes 26.7 % (21.0-51.0); %Monocytes 6.6 % (0.0-10.0); %Neutrophils 63.9 % (42.0-75.0); Hemoglobin 14.7 g/dL (12.0-16.0); Mean Corpuscular Hemoglobin 32.1 pg (27.0-31.0); Mean Corpuscular Volume 91.8 fL (78.0-98.0); Mean Platelet Volume 7.9 fL (7.4-10.4); Platelet Count 282 thou/uL (130-400); RBC Distribution Width 12.5 % (11.5-14.5); Red Blood Cell (RBC) Count 4.57 mill/uL (4.20-5.40); White Blood Cell (WBC) Count 5.5 thou/uL (4.8-10.8)
[2020-11-22 13:06] LABS: BHCG - Serum Negative (NEGATIVE); Pregs Control Background? CLEAR/WHITE (CLR/WHITE); Pregs Control Bar Appear? YES (CONTROL BAR)
[2020-11-22 13:16] LABS: ALT (SGPT) 57 U/L (8-55); AST (SGOT) 45 U/L (5-34); Albumin 4.3 g/dL (3.5-5.0); Alkaline Phosphatase 68 U/L (40-110); Anion Gap 14 mmol/L (10-20); BUN (Urea Nitrogen) 8 mg/dL (7.0-18.7); Bilirubin, Total 0.3 mg/dL (0.2-1.2); Calc. Creatinine Clearance 0 mL/min (70-130); Calcium 9.2 mg/dL (7.8-10.44); Carbon Dioxide 21 mmol/L (22-29); Chloride 105 mmol/L (98-107); Globulin 3.7 g/dL (2.4-3.5); Glucose 87 mg/dL (70-105); Potassium 4.2 mmol/L (3.5-5.1); Sodium 136 mmol/L (136-145)
[2020-11-22] MEDS ORDERED: Dexamethasone 10 MG/ML VIAL ONE (13:48)
[2020-11-22 14:53] LABS: Bilirubin Negative (Negative); Blood, Urine Negative (Negative); Glucose, Urine (Dipstick) Normal (Negative); Ketone, Urine 60 mg/dL (Negative); Leukocyte 75 Leu/uL (Negative); Nitrite Negative (Negative); Protein, Urine (Dipstick) Negative (Neg-Trace); RBC/HPF 0-3 HPF (0-3); Specific Gravity, Urine 1.023 (1.002-1.036); Urobilinogen Normal mg/dL (Less than 2); pH, Urine 5.5 (5.0-9.0)
[2020-11-22 14:54] LABS: Bacteria/HPF Rare-Few HPF (None Seen); Clarity Hazy (Clear)
== END 2020-11-22 15:45 | disposition home or self-care (01) ==
LOC: ERS 11:58 → CAC 15:45
DX: U07.1 COVID-19 (principal); E03.9 Hypothyroidism, unspecified; J45.909 Unspecified asthma, uncomplicated; Z79.899 Other long term (current) drug therapy
CPT/HCPCS: 71045; 80053; 81001; 84484; 84703; 85025; 93005; 96374; 96375; J1100; J2405

== ENCOUNTER 2020-12-17 17:14 | Emergency (ER) | payer OTHER ==
[2020-12-17 18:12] LABS: Pregnancy Test - Urine (BHCG) Negative (Negative)
[2020-12-17 18:13] LABS: Pregu Control Background? CLEAR/WHITE (CLR/WHITE); Pregu Control Bar Appear? YES (CONTROL BAR); Specific Gravity 1.025 (1.002-1.036)
[2020-12-17] MEDS ORDERED: Ketorolac Tromethamine 30 MG/ML VIAL ONE (20:05)
[2020-12-17] MEDS ORDERED: HYDROcodone/Acetaminophen 5/325 mg Tablet ONE (20:05)
== END 2020-12-17 20:25 | disposition home or self-care (01) ==
LOC: ERS 17:14
DX: M54.5 Low back pain (principal); M25.512 Pain in left shoulder; E03.9 Hypothyroidism, unspecified; J45.909 Unspecified asthma, uncomplicated; Z79.899 Other long term (current) drug therapy; W01.0XXA Fall on same level from slipping, tripping and stumbling without subsequent striking against object, initial encounter
CPT/HCPCS: 72100; 81025; 96372; J1885

== ENCOUNTER 2021-03-13 10:10 | Emergency (ER) | payer OTHER ==
[2021-03-13] MEDS ORDERED: Ondansetron PF 4 MG/2 ML Vial ONE (11:57)
[2021-03-13 12:08] LABS: Bilirubin Negative (Negative); Blood, Urine Negative (Negative); Clarity Turbid (Clear); Glucose, Urine (Dipstick) Normal (Negative); Ketone, Urine 60 mg/dL (Negative); Leukocyte Negative Leu/uL (Negative); Nitrite Negative (Negative); Protein, Urine (Dipstick) 20 mg/dL (Neg-Trace); Specific Gravity, Urine 1.029 (1.002-1.036); Urobilinogen Normal mg/dL (Less than 2)
[2021-03-13 12:32] LABS: #Basophils 0.1 thou/uL (0.0-0.2); #Eosinphils 0.2 thou/uL (0.0-0.7); #Lymphocytes 2.5 thou/uL (1.20-3.40); #Monocytes 0.7 thou/uL (0.11-0.59); #Neutrophils 5.2 thou/uL (1.40-6.50); %Basophils 0.6 % (0.0-1.0); %Eosinophils 2.6 % (0.0-10.0); %Lymphocytes 28.6 % (21.0-51.0); %Monocytes 8.1 % (0.0-10.0); %Neutrophils 60.2 % (42.0-75.0); Hemoglobin 14.2 g/dL (12.0-16.0); Mean Corpuscular HGB CONC 35.6 g/dL (32.0-36.0); Mean Corpuscular Hemoglobin 33.1 pg (27.0-31.0); Platelet Count 310 thou/uL (130-400); RBC Distribution Width 11.3 % (11.5-14.5); Red Blood Cell (RBC) Count 4.31 mill/uL (4.20-5.40); White Blood Cell (WBC) Count 8.6 thou/uL (4.8-10.8)
[2021-03-13] MEDS ORDERED: Acetaminophen 500 MG TAB ONE (12:48)
[2021-03-13 12:56] LABS: ALT (SGPT) 60 U/L (8-55); AST (SGOT) 53 U/L (5-34); Albumin 4.1 g/dL (3.5-5.0); Alkaline Phosphatase 55 U/L (40-110); Anion Gap 14 mmol/L (10-20); BUN (Urea Nitrogen) 8 mg/dL (7.0-18.7); Bilirubin, Total 0.6 mg/dL (0.2-1.2); Calc. Creatinine Clearance 0 mL/min (70-130); Calcium 9.6 mg/dL (7.8-10.44); Carbon Dioxide 21 mmol/L (22-29); Chloride 104 mmol/L (98-107); Globulin 3.5 g/dL (2.4-3.5); Glucose 81 mg/dL (70-105); Potassium 3.9 mmol/L (3.5-5.1); Protein, Total 7.6 g/dL (6.0-8.3); Sodium 135 mmol/L (136-145)
== END 2021-03-13 15:30 | disposition home or self-care (01) ==
LOC: ERS 10:10
DX: O02.81 Inappropriate change in quantitative human chorionic gonadotropin (hCG) in early pregnancy (principal); O99.281 Endocrine, nutritional and metabolic diseases complicating pregnancy, first trimester; E86.0 Dehydration; E03.9 Hypothyroidism, unspecified; O99.511 Diseases of the respiratory system complicating pregnancy, first trimester; J45.909 Unspecified asthma, uncomplicated; Z3A.01 Less than 8 weeks gestation of pregnancy; Z79.899 Other long term (current) drug therapy
CPT/HCPCS: 36415; 76856; 80053; 81003; 84439; 84443; 84702; 85025; 96374; J2405

== ENCOUNTER 2021-04-06 12:29 | Emergency (ER) | payer OTHER ==
[2021-04-06 13:49] LABS: Bilirubin Negative (Negative); Blood, Urine Negative (Negative); Clarity Clear (Clear); Glucose, Urine (Dipstick) Normal (Negative); Ketone, Urine 10 mg/dL (Negative); Leukocyte Negative Leu/uL (Negative); Nitrite Negative (Negative); Protein, Urine (Dipstick) Negative (Neg-Trace); Specific Gravity, Urine 1.022 (1.002-1.036); Urobilinogen Normal mg/dL (Less than 2)
[2021-04-06 13:51] LABS: Pregnancy Test - Urine (BHCG) POSITIVE (Negative); Pregu Control Background? CLEAR/WHITE (CLR/WHITE); Pregu Control Bar Appear? YES (CONTROL BAR); Specific Gravity 1.022 (1.002-1.036)
[2021-04-06 14:07] LABS: #Eosinphils 0.2 thou/uL (0.0-0.7); #Lymphocytes 2.7 thou/uL (1.20-3.40); #Monocytes 0.5 thou/uL (0.11-0.59); #Neutrophils 6.4 thou/uL (1.40-6.50); %Basophils 0.4 % (0.0-1.0); %Eosinophils 2.2 % (0.0-10.0); %Lymphocytes 27.3 % (21.0-51.0); %Monocytes 4.6 % (0.0-10.0); %Neutrophils 65.5 % (42.0-75.0); Hemoglobin 14.4 g/dL (12.0-16.0); Mean Corpuscular HGB CONC 36.1 g/dL (32.0-36.0); Mean Corpuscular Hemoglobin 33.3 pg (27.0-31.0); Mean Corpuscular Volume 92.2 fL (78.0-98.0); Mean Platelet Volume 7.7 fL (7.4-10.4); Platelet Count 327 thou/uL (130-400); Red Blood Cell (RBC) Count 4.32 mill/uL (4.20-5.40); White Blood Cell (WBC) Count 9.7 thou/uL (4.8-10.8)
[2021-04-06] MEDS ORDERED: Ondansetron PF 4 MG/2 ML Vial ONE (14:16)
[2021-04-06 14:36] LABS: ALT (SGPT) 31 U/L (8-55); AST (SGOT) 31 U/L (5-34); Alkaline Phosphatase 58 U/L (40-110); Anion Gap 13 mmol/L (10-20); BUN (Urea Nitrogen) 7 mg/dL (7.0-18.7); Bilirubin, Total 0.4 mg/dL (0.2-1.2); Calc. Creatinine Clearance 0 mL/min (70-130); Calcium 9.8 mg/dL (7.8-10.44); Carbon Dioxide 21 mmol/L (22-29); Chloride 104 mmol/L (98-107); Globulin 3.5 g/dL (2.4-3.5); Glucose 75 mg/dL (70-105); Lipase 12 U/L (8-78); Potassium 4.4 mmol/L (3.5-5.1); Protein, Total 7.5 g/dL (6.0-8.3); Sodium 134 mmol/L (136-145)
[2021-04-07 08:03] LABS: SARS-CoV-2 PCR by NAA Not Detected (NotDetected)
== END 2021-04-06 15:34 | disposition home or self-care (01) ==
LOC: ERS 12:29
DX: R11.2 Nausea with vomiting, unspecified (principal); Z20.822 Contact with and (suspected) exposure to COVID-19; E03.9 Hypothyroidism, unspecified; Z79.899 Other long term (current) drug therapy
CPT/HCPCS: 80053; 81003; 81025; 83690; 85025; 96374; J2405; U0003; U0005

== ENCOUNTER 2021-04-09 11:54 | Emergency (ER) | payer OTHER ==
[2021-04-09 13:30] LABS: #Basophils 0.1 thou/uL (0.0-0.2); #Eosinphils 0.2 thou/uL (0.0-0.7); #Lymphocytes 2.5 thou/uL (1.20-3.40); #Monocytes 0.5 thou/uL (0.11-0.59); %Basophils 0.6 % (0.0-1.0); %Eosinophils 2.1 % (0.0-10.0); %Lymphocytes 26.9 % (21.0-51.0); %Monocytes 5.1 % (0.0-10.0); %Neutrophils 65.3 % (42.0-75.0); Mean Corpuscular HGB CONC 36.2 g/dL (32.0-36.0); Mean Corpuscular Hemoglobin 33.5 pg (27.0-31.0); Mean Corpuscular Volume 92.7 fL (78.0-98.0); Mean Platelet Volume 7.5 fL (7.4-10.4); Platelet Count 321 thou/uL (130-400); Red Blood Cell (RBC) Count 4.18 mill/uL (4.20-5.40); White Blood Cell (WBC) Count 9.2 thou/uL (4.8-10.8)
[2021-04-09 13:51] LABS: Anion Gap 13 mmol/L (10-20); BUN (Urea Nitrogen) 5 mg/dL (7.0-18.7); Calc. Creatinine Clearance 0 mL/min (70-130); Calcium 9.4 mg/dL (7.8-10.44); Carbon Dioxide 23 mmol/L (22-29); Chloride 103 mmol/L (98-107); Glucose 74 mg/dL (70-105); Potassium 3.7 mmol/L (3.5-5.1); Sodium 135 mmol/L (136-145)
[2021-04-09] MEDS ORDERED: Metoclopramide HCl 10 MG/2 ML VIAL ONE (15:53)
[2021-04-09] MEDS ORDERED: Acetaminophen 500 MG TAB ONE (15:54)
[2021-04-09] MEDS ORDERED: Mag-Al 1200 mg/1200 mg/30 ML UDCUP ONE (17:05)
[2021-04-09] MEDS ORDERED: Lidocaine Viscous Sol 2% 15 ml UD Cup ONE (17:05)
== END 2021-04-09 18:00 | disposition home or self-care (01) ==
LOC: ERS 11:54
DX: O98.511 Other viral diseases complicating pregnancy, first trimester (principal); U07.1 COVID-19; Z3A.10 10 weeks gestation of pregnancy; O99.511 Diseases of the respiratory system complicating pregnancy, first trimester; J45.909 Unspecified asthma, uncomplicated; O99.281 Endocrine, nutritional and metabolic diseases complicating pregnancy, first trimester
CPT/HCPCS: 36415; 80048; 85025; 93005; 96365; J2765

== ENCOUNTER 2021-12-08 20:47 | Emergency (ER) | payer OTHER ==
[2021-12-08 21:36] LABS: #Basophils 0.1 thou/uL (0.0-0.2); #Eosinphils 0.3 thou/uL (0.0-0.7); #Lymphocytes 3.6 thou/uL (1.20-3.40); #Monocytes 0.6 thou/uL (0.11-0.59); #Neutrophils 6.4 thou/uL (1.40-6.50); %Basophils 0.9 % (0.0-1.0); %Eosinophils 2.9 % (0.0-10.0); %Lymphocytes 32.7 % (21.0-51.0); %Monocytes 5.6 % (0.0-10.0); %Neutrophils 57.9 % (42.0-75.0); Mean Corpuscular HGB CONC 35.2 g/dL (32.0-36.0); Mean Corpuscular Hemoglobin 30.8 pg (27.0-31.0); Mean Corpuscular Volume 87.6 fL (78.0-98.0); Mean Platelet Volume 8.1 fL (7.4-10.4); Platelet Count 297 thou/uL (130-400); RBC Distribution Width 13.7 % (11.5-14.5); Red Blood Cell (RBC) Count 4.23 mill/uL (4.20-5.40); White Blood Cell (WBC) Count 11.1 thou/uL (4.8-10.8)
[2021-12-08 21:41] LABS: Bacteria/HPF None Seen HPF (None Seen); Bilirubin Negative (Negative); Blood, Urine Negative (Negative); Clarity Clear (Clear); Glucose, Urine (Dipstick) Normal (Negative); Ketone, Urine Negative (Negative); Leukocyte 25 Leu/uL (Negative); Nitrite Negative (Negative); Protein, Urine (Dipstick) Negative (Neg-Trace); RBC/HPF 0-3 HPF (0-3); Specific Gravity, Urine 1.005 (1.002-1.036); Squamous Epithelial 0-3 HPF (0-3); Urobilinogen Normal mg/dL (Less than 2); WBC/HPF 0-3 HPF (0-3); pH, Urine 6.5 (5.0-9.0)
[2021-12-08 21:46] LABS: Amphetamine Not Detected (NotDetected); Barbiturates Screen Not Detected (NotDetected); Benzodiazepine Screen Not Detected (NotDetected); Cocaine Metabolite Screen Not Detected (NotDetected); Methadone Not Detected (NotDetected); Methamphetamine Not Detected (NotDetected); Opiate Screen Not Detected (NotDetected); Oxycodone Screen Not Detected (NotDetected); Phencyclidine (PCP) Not Detected (NotDetected); THC/Cannabinoid Screen Not Detected (NotDetected); Tricyclic Screen Not Detected (NotDetected)
[2021-12-08 21:54] LABS: Acetaminophen Less than 10.0 mcg/mL (10.0-30.0); Alcohol 45 mg/dL (Less than 10); Salicylate Less than 8.0 mg/dL (15.0-30.0)
[2021-12-08 21:55] LABS: ALT (SGPT) 19 U/L (8-55); AST (SGOT) 19 U/L (5-34); Albumin 4.4 g/dL (3.5-5.0); Alkaline Phosphatase 72 U/L (40-110); Anion Gap 18 mmol/L (10-20); BUN (Urea Nitrogen) 10 mg/dL (7.0-18.7); Bilirubin, Total 0.3 mg/dL (0.2-1.2); Calc. Creatinine Clearance 0 mL/min (70-130); Calcium 9.6 mg/dL (7.8-10.44); Carbon Dioxide 21 mmol/L (22-29); Chloride 105 mmol/L (98-107); Estimated GFR 84; Globulin 3.6 g/dL (2.4-3.5); Glucose 90 mg/dL (70-105); Potassium 3.8 mmol/L (3.5-5.1); Sodium 140 mmol/L (136-145)
== END 2021-12-09 00:03 | disposition home or self-care (01) ==
LOC: ERS 20:47
DX: F53.0 Postpartum depression (principal); E03.9 Hypothyroidism, unspecified
CPT/HCPCS: 36415; 80053; 80306; 80307; 81003; 81015; 84443; 85025; 99284

== ENCOUNTER 2022-03-27 14:09 | Emergency (ER) | payer OTHER | END 2022-03-27 15:45 | disposition home or self-care (01) | LOC: ERS 14:09 | DX: J45.901 Unspecified asthma with (acute) exacerbation (principal); B34.9 Viral infection, unspecified; E03.9 Hypothyroidism, unspecified; Z20.822 Contact with and (suspected) exposure to COVID-19 | CPT/HCPCS: 71045; 87804; 93005; 94640; J7620; U0003; U0005 ==

== ENCOUNTER 2022-10-15 20:44 | Emergency (ER) | payer OTHER ==
[~2022-10-15 20:44] MED LIST changes: -Iopamidol-370 76% 500 ML 1 ML ONE; +Iopamidol-370 76% 500 ML MDV (1 ML CHARGE) ONE
[2022-10-15 21:55] LABS: #Basophils 0.2 thou/uL (0.0-0.2); #Eosinphils 0.7 thou/uL (0.0-0.7); #Monocytes 0.7 thou/uL (0.11-0.59); #Neutrophils 6.8 thou/uL (1.40-6.50); %Basophils 1.2 % (0.0-1.0); %Eosinophils 5.8 % (0.0-10.0); %Lymphocytes 30.1 % (21.0-51.0); %Monocytes 5.9 % (0.0-10.0); %Neutrophils 56.4 % (42.0-75.0); Mean Corpuscular HGB CONC 36.3 g/dL (32.0-36.0); Mean Corpuscular Hemoglobin 32.3 pg (27.0-31.0); Mean Corpuscular Volume 89.1 fl (78.0-98.0); Mean Platelet Volume 10.4 fL (7.4-10.4); Platelet Count 347 10x3/uL (130-400); RBC Distribution Width 12.8 % (11.5-14.5); Red Blood Cell (RBC) Count 4.33 mill/uL (4.20-5.40); White Blood Cell (WBC) Count 12.1 10x3/uL (4.8-10.8)
[2022-10-15] MEDS ORDERED: methylPREDNISolone Sod Succ/PF 125 MG/2 ML VIAL ONE (21:56)
[2022-10-15] MEDS ORDERED: Ketorolac Tromethamine 30 MG/ML VIAL ONE (21:56)
[2022-10-15 22:03] LABS: BHCG - Serum Negative (NEGATIVE); Pregs Control Background? CLEAR/WHITE (CLR/WHITE); Pregs Control Bar Appear? YES (CONTROL BAR)
[2022-10-15 22:19] LABS: ALT (SGPT) 21 U/L (8-55); AST (SGOT) 16 U/L (5-34); Albumin 4.4 g/dL (3.5-5.0); Alkaline Phosphatase 61 U/L (40-110); Anion Gap 17 mmol/L (10-20); BUN (Urea Nitrogen) 12 mg/dL (7.0-18.7); Bilirubin, Total 0.4 mg/dL (0.2-1.2); Calc. Creatinine Clearance 0 mL/min (70-130); Calcium 9.7 mg/dL (7.8-10.44); Carbon Dioxide 19 mmol/L (22-29); Chloride 105 mmol/L (98-107); Estimated GFR 87; Globulin 3.5 g/dL (2.4-3.5); Glucose 87 mg/dL (70-105); Potassium 3.7 mmol/L (3.5-5.1); Protein, Total 7.9 g/dL (6.0-8.3); Sodium 137 mmol/L (136-145)
== END 2022-10-15 23:15 | disposition home or self-care (01) ==
LOC: ERS 20:44
DX: J18.9 Pneumonia, unspecified organism (principal); J45.909 Unspecified asthma, uncomplicated; E03.9 Hypothyroidism, unspecified
CPT/HCPCS: 71045; 71275; 80053; 84484; 84703; 85025; 93005; 96374; 96375; J1885; J2930; Q9967

== ENCOUNTER 2022-10-17 15:32 | Emergency (ER) | payer OTHER ==
[2022-10-17 16:53] LABS: #Basophils 0.1 thou/uL (0.0-0.2); #Eosinphils 0.2 thou/uL (0.0-0.7); #Monocytes 0.7 thou/uL (0.11-0.59); %Basophils 0.8 % (0.0-1.0); %Eosinophils 1.3 % (0.0-10.0); %Lymphocytes 24.3 % (21.0-51.0); %Monocytes 5.5 % (0.0-10.0); %Neutrophils 67.6 % (42.0-75.0); Hemoglobin 13.3 g/dL (12.0-16.0); Mean Corpuscular HGB CONC 34.7 g/dL (32.0-36.0); Mean Corpuscular Hemoglobin 31.8 pg (27.0-31.0); Mean Corpuscular Volume 91.6 fl (78.0-98.0); Platelet Count 325 10x3/uL (130-400); RBC Distribution Width 13.5 % (11.5-14.5); Red Blood Cell (RBC) Count 4.18 mill/uL (4.20-5.40); White Blood Cell (WBC) Count 11.9 10x3/uL (4.8-10.8)
[2022-10-17 17:03] LABS: INR-International Normal Ratio 1.1; PTT 28.5 sec (22.9-36.1); Prothrombin Time 14.1 sec (12.0-14.7)
[2022-10-17 17:09] LABS: BHCG - Serum Negative (NEGATIVE); Pregs Control Background? CLEAR/WHITE (CLR/WHITE); Pregs Control Bar Appear? YES (CONTROL BAR)
[2022-10-17] MEDS ORDERED: cefTRIAXone (ROCEPHIN) 2 GM VIAL ONE (17:20)
[2022-10-17 17:42] LABS: ALT (SGPT) 19 U/L (8-55); AST (SGOT) 18 U/L (5-34); Albumin 4.3 g/dL (3.5-5.0); Alkaline Phosphatase 51 U/L (40-110); Anion Gap 16 mmol/L (10-20); BUN (Urea Nitrogen) 16 mg/dL (7.0-18.7); Bilirubin, Total 0.3 mg/dL (0.2-1.2); Calc. Creatinine Clearance 0 mL/min (70-130); Carbon Dioxide 18 mmol/L (22-29); Chloride 108 mmol/L (98-107); Estimated GFR 85; Globulin 3.4 g/dL (2.4-3.5); Glucose 91 mg/dL (70-105); Potassium 3.4 mmol/L (3.5-5.1); Protein, Total 7.7 g/dL (6.0-8.3); Sodium 139 mmol/L (136-145)
[2022-10-17] MEDS ORDERED: methylPREDNISolone Sod Succ/PF 125 MG/2 ML VIAL ONE (17:55)
[2022-10-17] MEDS ORDERED: Azithromycin 500 MG VIAL ONE (18:33)
[2022-10-17 18:41] LABS: Bacteria/HPF 1+ HPF (None Seen); Bilirubin Negative (Negative); Blood, Urine 2+ (Negative); CAUTI Indications for Culture Dysuria,urgency,freq; Clarity Clear (Clear); Glucose, Urine (Dipstick) Normal (Negative); Ketone, Urine Negative (Negative); Leukocyte 75 Leu/uL (Negative); Nitrite Negative (Negative); Protein, Urine (Dipstick) 50 mg/dL (Neg-Trace); RBC/HPF 0-3 HPF (0-3); Specific Gravity, Urine 1.033 (1.002-1.036); Urobilinogen Normal mg/dL (Less than 2)
[2022-10-17 18:43] LABS: Urine Culture Reflex No No
== END 2022-10-17 19:02 | disposition home or self-care (01) ==
LOC: ERS 15:32
DX: J18.9 Pneumonia, unspecified organism (principal); D72.829 Elevated white blood cell count, unspecified; E03.9 Hypothyroidism, unspecified
CPT/HCPCS: 36415; 71045; 80053; 81001; 83605; 84703; 85025; 85610; 85730; 87040; 87086; 93005; 94760; 96365; 96366; 96368; J0456; J0696; J2930

== ENCOUNTER 2022-12-05 15:58 | Outpatient (CLI) | payer OTHER | END 2022-12-05 15:59 | disposition home or self-care (01) | LOC: RAD 15:58 | PROVIDERS: ATTEND Student in an Organized Health Care Education/Training Program | DX: M54.50 Low back pain, unspecified (principal) | CPT/HCPCS: 72100 ==

== ENCOUNTER 2023-05-02 12:21 | Emergency (ER) | payer MEDICAID, OTHER ==
[2023-05-02 13:51] LABS: SARS-CoV-2 NAA Rapid Test Not Detected (NotDetected)
[2023-05-02] MEDS ORDERED: Meclizine HCl 25 MG TAB ONE (14:13)
[2023-05-02] MEDS ORDERED: Ibuprofen 200 MG TAB ONE (14:13)
== END 2023-05-02 15:18 | disposition home or self-care (01) ==
LOC: ERS 12:21
DX: F41.9 Anxiety disorder, unspecified (principal); J11.1 Influenza due to unidentified influenza virus with other respiratory manifestations
CPT/HCPCS: 71045; 93005